=== PATIENT | male | born 1940 | race Caucasian/White ===

== ENCOUNTER 2018-06-18 12:25 | Inpatient (IN) | payer MEDICARE, OTHER ==
[2018-06-18 15:25] LABS: CKMB 1.2 ng/mL (0-6.6); Troponin I Less than 0.010 ng/mL (< 0.028)
[2018-06-18] MEDS ORDERED: Mag-Al 1200 mg/1200 mg/30 ML UDCUP PO PRN (17:48)
[2018-06-18] MEDS ORDERED: Senokot 8.6 MG TAB PO PRN (17:48)
[2018-06-18] MEDS ORDERED: Nitroglycerin 0.4 MG TAB (25 Tab Bottle) PO PRN (17:48)
[2018-06-18] MEDS ORDERED: Ondansetron ODT 4 MG TAB PO PRN (17:48)
[2018-06-18] MEDS ORDERED: Calcium Carbonate 500 MG ChewTAB PO PRN (17:48)
[2018-06-18] MEDS ORDERED: Ondansetron HCl/PF 4 MG/2 ML Vial IVP PRN (17:48)
[2018-06-18] MEDS ORDERED: Acetaminophen 325 MG TAB PO PRN (17:48)
--- NOTE | 2018-06-18 17:56 | CON ---
DATE OF CONSULTATION: 06/18/2018 PRIMARY CANCER REGISTRY COORDINATOR: David Hassan M.D. REASON FOR CONSULTATION: Atrial fibrillation, rapid ventricular response. HISTORY OF PRESENT ILLNESS: Mr. Tamayo is a very pleasant 78-year-old white gentleman who comes to the hospital for not feeling well. He was not feeling well for the last few days and he sent recordi ng of his AICD to [facility] and was told to come to the ER. In the ER, he was found to be in atrial fibrillation with heart rate in the 80s. He is being admitted for further evaluation and care. He a lso had episodes of what appeared to be paced rhythm in the 70s. He does have a history of paroxysma l atrial fibrillation in the past and has been on several antiarrhythmics including Multaq more recen tly and currently he is on 80 mg of sotalol twice a day. He currently still feels a little worn out. He states this is the same way he feels when his atrial fibrillation comes. PAST MEDICAL HISTORY: 1. Nonischemic cardiomyopathy, latest EF at 45% to 50%. 2. Paroxysmal atrial fibrillation. 3. History of ventricular arrhythmia, status post AICD placement. 4. Hypertension. 5. Benign prostatic hypertrophy. 6. Hyperlipidemia. OUTPATIENT MEDICATIONS: Include, 1. Hydralazine 50 mg t.i.d. 2. Mucinex. 3. Clonidine 0.1 mg at bedtime. 4. Amlodipine/valsartan daily. 5. Zocor 40 mg at bedtime. 6. Rapaflo. 7. Xarelto 20 mg a day. 8. Primidone 50 mg a day. 9. Potassium chloride 10 mEq a day. 10. Multivitamins. 11. Lisinopril 40 mg a day. 12. Lasix 40 mg a day. 13. Flonase nasal spray. 14. Finasteride. 15. Prozac 20 mg a day. 16. Nexium. 17. Docusate. 18. Sotalol 80 mg twice a day. 19. Aspirin 81 a day. 20. Tylenol p.r.n. ALLERGIES: MULTAQ causes swelling. PAST SURGICAL HISTORY: 1. Mass removed in his neck 3 years ago. 2. Repair of anal fistula. 3. AICD placement. 4. Removal of AICD lead due to recall and revision of AICD, this was some years back. FAMILY HISTORY: Father with coronary artery disease, cardiomyopathy, at 64. SOCIAL HISTORY: Drinks a shot of bourbon at night, [employer], quit smoking about 35-36 years ago. No drug use. REVIEW OF SYSTEMS: A 12-point review of systems was done and is all negative unless stated in the hi story of present illness. PHYSICAL EXAMINATION: VITAL SIGNS: Blood pressure 122/72, satting 96% on room air, heart rate of 87, respiratory rate 18. GENERAL: Awake, alert, oriented x3, in no distress. HEENT: Normocephalic, atraumatic. NECK: Supple. LUNGS: Clear. CARDIOVASCULAR: Irregularly irregular heart rate in the 70s-80s. ABDOMEN: Soft, positive bowel sounds. EXTREMITIES: No edema. SKIN: Warm and dry. LABORATORY WORK: Reviewed. Troponin is negative x2. CBC is unremarkable. Chemistries were unremar kable except for glucose of 123. EKG was reviewed, after fibrillation with heart rate in the 70s-80s with occasional paced beats. ASSESSMENT AND PLAN: 1. Atrial fibrillation. Paroxysmal. Symptomatic, currently, he has failed antiarrhythmic therapy a s he has been on sotalol 80 mg twice a day. We will plan on keeping him n.p.o. post-midnight and doi ng a cardioversion tomorrow to get him back into normal rhythm and he would be a candidate for an abl ation given him failing the antiarrhythmic therapy. 2. Continue Xarelto for stroke prophylaxis and sotalol for now. 3. Dr. Hassan, his primary daytime caregiver will follow up in the morning.
[2018-06-18 17:57] VITALS: BMI 32.2
[2018-06-18] MEDS ORDERED: Fluticasone Propionate Nasal Spray 16 gm Bottle NASAL PRN (18:00)
[2018-06-18] MEDS ORDERED: Acetaminophen 500 MG TAB PO PRN (18:00)
[2018-06-18] MEDS ORDERED: guaiFENesin ER 600 MG TAB PO PRN (18:00)
--- NOTE | 2018-06-18 18:04 | HP ---
DATE OF ADMISSION: 06/18/2018 PRIMARY CARE PHYSICIAN: Dr. Mcclain. PRIMARY MANAGER MASSAGE DEPARTMENT: Dr. Hassan. CHIEF COMPLAINT: Chest discomfort along with generalized weakness/fatigue since yesterday. HISTORY OF PRESENT ILLNESS: Patient is a 78-year-old male with cardiomyopathy, chronic atrial fibril lation on anticoagulation, hypertension, and dyslipidemia who presented to the emergency room with ge neralized weakness, fatigue along with chest pressure since last night. The chest pressure was mild to moderate in intensity. He also felt intermittent palpitations. No nausea, vomiting, diaphoresis or radiation reported. He denies recent immobilization, travel. He is compliant with all of his med ications. He interrogated his pacemaker. He received a call from Dr. Diallo's office come to the [facility] room for evaluation for possible ventricular tachycardia. PAST MEDICAL HISTORY: 1. Cardiomyopathy. 2. Chronic atrial fibrillation. 3. Hypertension. 4. Dyslipidemia. 5. Benign prostatic hypertrophy. 6. Anxiety, depression. PAST SURGICAL HISTORY: 1. Pacemaker placement. 2. Neck mass removal. 3. Fistula in ano repair. ALLERGIES: MULTAQ that causes generalized swelling. CURRENT HOME MEDICATIONS: Carvedilol 25 mg twice a day, lisinopril 40 mg daily, finasteride 5 mg carter ly, rabeprazole 20 mg daily, Lasix 40 mg daily, sotalol 80 mg twice a day, Exforge daily 10/320 daily , venlafaxine 150 mg daily, Flomax 0.4 mg daily, hydralazine 50 mg 3 times a day, Zocor 40 mg at bedt ana, primidone 100 mg at bedtime, melatonin 5 mg at bedtime, potassium 10 mEq daily. SOCIAL HISTORY: Patient currently lives at home. He is . He drinks alcohol socially. Quit smoking many years ago. He is FULL CODE, makes his own decisions with the help of his . FAMILY HISTORY: Father with heart disease. REVIEW OF SYSTEMS: The following complete review of systems was negative, unless otherwise mentioned in the HPI or below: Constitutional: Weight loss or gain, ability to conduct usual activities. Skin: Rash, itching. Eyes: Double vision, pain. ENT/Mouth: Nose bleeding, neck stiffness, pain, tenderness. Cardiovascular: Palpitations, dyspnea on exertion, orthopnea. Respiratory: Shortness of breath, wheezing, cough, hemoptysis, fever or night sweats. Gastrointestinal: Poor appetite, abdominal pain, heartburn, nausea, vomiting, constipation, or diarr hea. Genitourinary: Urgency, frequency, dysuria, nocturia. Musculoskeletal: Pain, swelling. Neurologic/Psychiatric: Anxiety, depression. Allergy/Immunologic: Skin rash, bleeding tendency. PHYSICAL EXAMINATION: VITAL SIGNS: On ER arrival, temperature 98, pulse rate of 87, blood pressure 122/72 with O2 saturati on 96% on room air. GENERAL: A 78-year-old male in no apparent distress. HEENT: Head is atraumatic, normocephalic, Sclerae are anicteric. Moist mucous membranes. No oral l esion. NECK: Supple, no JVD, no carotid bruit. LUNGS: Clear to auscultation bilaterally, no wheezing, rales or rhonchi. HEART: S1 and S2 present. Irregularly irregular. No heaves or pulsation. ABDOMEN: Soft, nontender, bowel sounds present. EXTREMITIES: No edema or calf tenderness. NEUROLOGIC: Grossly nonfocal, moves all four extremities. PSYCHIATRIC: Alert, awake, oriented x3. SKIN: Warm and dry. LYMPH NODES: No palpable lymph nodes in the neck. PERIPHERAL VASCULAR: Radial pulses palpable bilaterally. MUSCULOSKELETAL: No joint swelling or tenderness. LABORATORY DATA AND IMAGING DATA: 1. Troponins were negative. 2. CBC showed WBC 10 with hemoglobin 15.3, hematocrit 44.3 and platelet 288. 3. Creatinine of 1.1 with BUN 12. Magnesium 2.5. 4. Chest x-ray by my review was negative for infiltrate. EKG by my review showed paced rhythm with intermittent atrial fibrillation. IMPRESSION: 1. Chest discomfort, rule out acute coronary syndrome. 2. Chronic atrial fibrillation on anticoagulation. 3. Hypertension. 4. Dyslipidemia. 5. Anxiety and depression. 6. Gastroesophageal reflux disease. 7. Benign prostatic hypertrophy. 8. Chronic kidney disease stage 2. 9. History of AICD placement. PLAN: The patient will be monitored on the telemetry unit. Serial troponins will be done. We will consult Cardiology. The patient will be kept n.p.o. past midnight. We will continue anticoagulation . We will continue carvedilol and sotalol. We will resume other medications as well. Plan of care was discussed with the patient in detail. He stated understanding. DISPOSITION: Probably in 24 hours depending on Cardiology input.
[2018-06-18 18:23] LABS: Troponin I Less than 0.010 ng/mL (< 0.028)
[2018-06-18] MEDS ORDERED: Sotalol HCl 80 MG TAB PO SCH (21:00)
[2018-06-18] MEDS: Carvedilol 25 MG TAB PO SCH (21:52)
[2018-06-18] MEDS: Rivaroxaban 10 MG TAB PO SCH (21:52)
[2018-06-18] MEDS: Simvastatin 40 MG TAB PO SCH (21:53)
[2018-06-18] MEDS: cloNIDine 0.1 MG TAB PO SCH (21:53)
[2018-06-18] MEDS: hydrALAZINE 25 MG TAB PO SCH (21:53)
[2018-06-18] MEDS: Docusate 100 MG CAP PO SCH (21:56)
[2018-06-19] MEDS ORDERED: Sotalol HCl 80 MG TAB PO SCH (07:22)
[2018-06-19] MEDS ORDERED: Hydrochlorothiazide 25 MG TAB PO SCH (09:00)
[2018-06-19] MEDS ORDERED: VALSARTAN PO SCH (09:00)
[2018-06-19] MEDS ORDERED: AMLODIPINE PO SCH (09:00)
[2018-06-19] MEDS ORDERED: Valsartan 80 MG TAB PO SCH (09:00)
[2018-06-19] MEDS ORDERED: Amlodipine 10 MG TAB PO SCH (09:00)
[2018-06-19] MEDS: Venlafaxine HCl XR 150 MG CAP PO SCH (09:07)
[2018-06-19] MEDS: Tamsulosin HCl 0.4 MG CAP PO SCH (09:09)
[2018-06-19] MEDS: Amlodipine 10 MG TAB PO SCH (09:09)
[2018-06-19] MEDS: Carvedilol 25 MG TAB PO SCH ×2 (09:09→20:33)
[2018-06-19] MEDS: Docusate 100 MG CAP PO SCH ×2 (09:09→20:36)
[2018-06-19] MEDS: Valsartan 80 MG TAB PO SCH (09:10)
[2018-06-19] MEDS: Sotalol HCl 80 MG TAB PO SCH ×2 (09:11→20:33)
[2018-06-19] MEDS: Lisinopril 20 MG TAB PO SCH (09:11)
[2018-06-19] MEDS: Furosemide 40 MG TAB PO SCH (09:12)
[2018-06-19] MEDS: hydrALAZINE 25 MG TAB PO SCH ×3 (09:12→20:35)
[2018-06-19] MEDS: Multivitamin W/ Minerals 1 TAB PO SCH (09:13)
[2018-06-19] MEDS: Potassium Chloride 10 MEQ TAB PO SCH (09:13)
[2018-06-19] MEDS: Finasteride 5 MG TAB PO SCH (09:13)
--- NOTE | 2018-06-19 12:10 | PRG ---
DATE OF SERVICE: 06/19/2018 SUBJECTIVE: The patient is seen and examined at bedside. He is feeling better. Apparently, he was scheduled for HOMER and ablation of his atrial fibrillation this morning, but he converted and he is in sinus rhythm with some occasional atrial pacing going on. OBJECTIVE: VITAL SIGNS: Blood pressure is 146/76, pulse is 62, temperature is 97.9, O2 saturation is 96% on leopoldo m air and respiratory rate is 16. HEENT: His head is atraumatic, normocephalic. Eyes are PERRLA. Sclerae nonicteric. Oral mucosa is moist. NECK: Supple, no lymphadenopathy. Thyroid is not palpable. LUNGS: Clear. HEART: S1, S2, occasionally irregular. No S3, no S4. ABDOMEN: Soft, nontender, nondistended. EXTREMITIES: No clubbing, cyanosis or edema. NEUROLOGIC: He is alert and oriented x4. There is no any focal deficits. LABORATORY DATA: None today. IMPRESSION: 1. Atrial fibrillation, paroxysmal, the dose on sotalol was increased. Most likely, he will stay ad ditional 24 hours and be monitored for recurrence of his atrial fibrillation. Transesophageal echoca rdiography and ablation procedure were cancelled at this point. We will continue Xarelto for cerebro vascular accident prophylaxis. 2. Cardiomyopathy. 3. Hypertension. 4. Dyslipidemia. 5. Anxiety and depression. 6. Gastroesophageal reflux disease. 7. Chronic kidney disease stage 2. 8. History of AICD placement. He is going to be discharged most likely in the next 24 hours if his atrial fibrillation is under con trol on higher dose of sotalol.
[2018-06-19] MEDS: cloNIDine 0.1 MG TAB PO SCH (20:35)
[2018-06-19] MEDS: Rivaroxaban 10 MG TAB PO SCH (20:35)
[2018-06-19] MEDS: Simvastatin 40 MG TAB PO SCH (20:36)
--- NOTE | 2018-06-19 21:51 | CON ---
DATE OF CONSULTATION: 06/19/2018 REFERRING PHYSICIAN: Dr. David Hassan. REASON FOR CONSULTATION: Atrial fibrillation. HISTORY OF PRESENT ILLNESS: Mr. Tamayo is a very pleasant man known to our clinic with a history of atrial arrhythmias as well as inclusion of an ICD device. Today referred to his care that he presen kira to the emergency room in [place] for atrial fibrillation with complaints of feeling tired and scales ving regular heartbeat detected on his home blood pressure monitor. In the past, he has had intermit tent episodes of atrial fibrillation, which has been largely asymptomatic and brief in nature with ta destinee sotalol for arrhythmia suppression. He was then admitted for further evaluation and medication management. His sotalol was increased to 120 mg b.i.d. and his Xarelto was continued for stroke prop hylaxis. Currently, he is feeling well without any heart racing, palpitations, chest pain or pressure, syncope , near syncope, stroke or stroke-like symptoms. He feels like the higher dose of sotalol as working at keeping him in rhythm more. REVIEW OF SYSTEMS: A 12-point review of systems was conducted and is negative except that listed abo ve in the HPI. The patient denies any heart failure symptoms of shortness of breath, swelling of the extremities, increasing dyspnea on exertion or progressive fatigue. Fatigue was sudden in onset whe n he awoke. PAST MEDICAL HISTORY: 1. Nonischemic cardiomyopathy with recovered ejection fraction most recently documented at 45% to 50 %. 2. Paroxysmal atrial fibrillation. 3. Inclusion of a dual chamber ICD placed for history of ventricular arrhythmias. 4. Hypertension. 5. Gastroesophageal reflux disease. 6. Hyperlipidemia. 7. Anticoagulation with Xarelto. 8. Antiarrhythmic therapy on sotalol. 9. Benign prostatic hypertrophy. ALLERGIES: MULTAQ causes swelling. OUTPATIENT MEDICATIONS: Include carvedilol 25 mg b.i.d., Exforge 10/320 mg daily, sotalol 80 mg b.i. d., Lasix 40 mg daily, potassium 10 mEq daily, finasteride 5 mg daily, lisinopril 40 mg daily, hydral azine 50 mg daily, multivitamin daily, Xarelto 20 mg daily, docusate calcium 240 mg daily, Zocor 40 m g daily, clonidine 0.1 mg as needed, primidone 100 mg p.o. at bedtime, Tylenol as needed, Optive eyed rops, Flonase, Mucinex, tamsulosin 0.4 mg at bedtime, venlafaxine, and rabeprazole. FAMILY HISTORY: Positive for father with coronary artery disease and cardiomyopathy in the past at a ge of 64. SOCIAL HISTORY: Alcoholic beverage daily. Former tobacco habituation, quit approximately 35 years a go. No illicit drug use. PHYSICAL EXAMINATION: VITAL SIGNS: Most recent vital signs include 98.1, heart rate 61, blood pressure 125/70, respiration s 20, oxygen saturations 97% on room air. LABORATORY DATA: Serial troponins are negative. Magnesium is 2.5. WBC 10.0, hemoglobin 15.3, hemat ocrit 43.3, platelet count is 288. Sodium 145, potassium 3.7, BUN 12, creatinine 1.16. AST and ALT are within normal limits. BNP 488. EKG and telemetry all were personally reviewed and initially reflect atrial fibrillation with control led ventricular rate. The patient has since converted to normal sinus rhythm and is largely maintain ing sinus rhythm with demand ventricular pacing during episodes of bradycardia. ICD has not been interrogated. IMPRESSION: 1. Paroxysmal atrial fibrillation with recurrence and mild RVR despite sotalol 80 mg b.i.d., now diana ntaining sinus rhythm with increased sotalol 120 mg b.i.d. 2. Chronic systolic heart failure with mildly reduced left ventricular ejection fraction 45% to 50%. 3. Anticoagulation on Xarelto and tolerating well without bleeding dyscrasias for a CHADS-VASc score of 4 on the basis of advanced age, history of heart failure and history of hypertension, anticoagula tion is indicated. 4. Inclusion of a dual chamber ICD Medtronic Protecta XT , approaching SERGO with estimated longevit y of 2.7 months by device interrogation when he was last seen in clinic on 05/23/2018. PLAN: 1. Agree with increased sotalol at 120 mg b.i.d. We will add daily EKGs to monitor for QTC prolonga tion. 2. We will set up for outpatient PVI in the near future. Thank you for allowing us to participate in the care of this patient. We will continue to follow thr ough his hospitalization and do recommend continued monitoring with serial EKGs with the increase in the sotalol prior to discharge.
[2018-06-20] MEDS: Amlodipine 10 MG TAB PO SCH (08:37)
[2018-06-20] MEDS: Carvedilol 25 MG TAB PO SCH (08:37)
[2018-06-20] MEDS: Multivitamin W/ Minerals 1 TAB PO SCH (08:38)
[2018-06-20] MEDS: Finasteride 5 MG TAB PO SCH (08:38)
[2018-06-20] MEDS: hydrALAZINE 25 MG TAB PO SCH ×2 (08:38→16:04)
[2018-06-20] MEDS: Lisinopril 20 MG TAB PO SCH (08:38)
[2018-06-20] MEDS: Furosemide 40 MG TAB PO SCH (08:38)
[2018-06-20] MEDS: Sotalol HCl 80 MG TAB PO SCH (08:39)
[2018-06-20] MEDS: Potassium Chloride 10 MEQ TAB PO SCH (08:39)
[2018-06-20] MEDS: Venlafaxine HCl XR 150 MG CAP PO SCH (08:40)
[2018-06-20] MEDS: Tamsulosin HCl 0.4 MG CAP PO SCH (08:40)
[2018-06-20] MEDS: Valsartan 80 MG TAB PO SCH (08:40)
[2018-06-20] MEDS: Docusate 100 MG CAP PO SCH (08:43)
[2018-06-20 16:04] VITALS: BP 137/72
[2018-06-20 16:10] VITALS: TEMP 98.6
--- NOTE | 2018-06-20 17:06 | PDOC.CTH ---
<BenoiteliezerblaiseClotilde - Last Filed: 06/20/18 17:03> Cardiology Progress Note - Subjective EP progress Note: Patient seen and evaluated. No new cardiac concerns of complaints. Tolerating higher sotalol dose well - Objective Vital Signs Temp Pulse Resp BP BP Pulse Ox 06/20/18 16:04 62 137/72 06/20/18 16:00 98.6 F 62 16 137/72 96 06/20/18 11:26 97.6 F 60 16 122/67 96 06/20/18 08:43 98.0 F 65 16 94 L 06/20/18 08:39 65 139/80 06/20/18 08:38 65 139/80 06/20/18 08:37 65 139/80 06/20/18 08:09 97 06/20/18 08:00 98.0 F 65 16 139/80 94 L Weight 224 lb 4.8 oz 06/19/18 06/20/18 06/21/18 06:59 06:59 06:59 Intake Total 480 1414 Output Total 275 1000 Balance 205 414 - Physical Examination General/Neuro: alert & oriented x3, NAD Neck: carotid US brisk, no JVD present Lungs: CTA, unlabored respirations Heart: PMI normal, RRR Abdomen: no HSM, NT/ND - Telemetry Telemetry Rhythm: NSR - Labs Troponin/CKMB CK-MB (CK-2) 1.2 ng/mL (0-6.6) 06/18/18 14:47 Troponin I Less than 0.010 ng/mL (< 0.028) 06/18/18 17:43 - Assessment/Plan 1. A Fib with RVR now maintaining NSR. 2. OAC on Xarelto QTc stable (~410 msec) by 12 leak EKGs with higher dose of sotalol. Continue OAC and sotalol. OK for DC. will make arrangements for PVAI as outpatient in the near future. <Rudy Diallo - Last Filed: 06/20/18 18:03> Cardiology Progress Note - Objective Vital Signs Temp Pulse Resp BP BP Pulse Ox 06/20/18 16:04 62 137/72 06/20/18 16:00 98.6 F 62 16 137/72 96 06/20/18 11:26 97.6 F 60 16 122/67 96 06/20/18 08:43 98.0 F 65 16 94 L 06/20/18 08:39 65 139/80 06/20/18 08:38 65 139/80 06/20/18 08:37 65 139/80 06/20/18 08:09 97 06/20/18 08:00 98.0 F 65 16 139/80 94 L Weight 224 lb 4.8 oz 06/19/18 06/20/18 06/21/18 06:59 06:59 06:59 Intake Total 480 1414 Output Total 275 1000 Balance 205 414 - Labs Troponin/CKMB CK-MB (CK-2) 1.2 ng/mL (0-6.6) 06/18/18 14:47 Troponin I Less than 0.010 ng/mL (< 0.028) 06/18/18 17:43 Attending Addendum - Attending Addendum Date/Time: 06/20/18 180 I personally evaluated the patient and discussed the management with Ms Stephen. I agree with the History, Examination, Assessment and Plan documented above with any addition or exceptions noted below.
== END 2018-06-20 19:27 | disposition home or self-care (01) | DRG 309 ==
LOC: ERS 12:25 → 2NO 15:12 → INTOOBSV 15:12 → OBSVTOIN 06-19 15:46
PROVIDERS: ADMIT Internal Medicine; ATTEND Internal Medicine
DX: I48.0 Paroxysmal atrial fibrillation (principal); I13.0 Hypertensive heart and chronic kidney disease with heart failure and stage 1 through stage 4 chronic kidney disease, or unspecified chronic kidney disease; I50.22 Chronic systolic (congestive) heart failure; I42.9 Cardiomyopathy, unspecified; E78.5 Hyperlipidemia, unspecified; N40.0 Benign prostatic hyperplasia without lower urinary tract symptoms; F41.9 Anxiety disorder, unspecified; F32.9 Major depressive disorder, single episode, unspecified; K21.9 Gastro-esophageal reflux disease without esophagitis; N18.2 Chronic kidney disease, stage 2 (mild); Z79.01 Long term (current) use of anticoagulants; Z87.891 Personal history of nicotine dependence; Z95.810 Presence of automatic (implantable) cardiac defibrillator; Z82.49 Family history of ischemic heart disease and other diseases of the circulatory system
CPT/HCPCS: 36415; 83735; 93005; 93010; 93306; 94760; A4216

== ENCOUNTER 2019-04-06 04:41 | Emergency (ER) | payer MEDICARE, OTHER | END 2019-04-06 05:33 | disposition home or self-care (01) | LOC: ERS 04:41 | DX: J06.9 Acute upper respiratory infection, unspecified (principal); I48.91 Unspecified atrial fibrillation; I10 Essential (primary) hypertension; F32.9 Major depressive disorder, single episode, unspecified; Z87.891 Personal history of nicotine dependence; Z79.899 Other long term (current) drug therapy; Z79.82 Long term (current) use of aspirin | CPT/HCPCS: 99282 ==

== ENCOUNTER 2020-01-25 10:31 | Inpatient (IN) | payer MEDICARE, OTHER ==
[2020-01-25] MEDS ORDERED: Ondansetron PF 4 MG/2 ML Vial ONE (10:41)
[2020-01-25 11:11] LABS: #Eosinphils 0.1 thou/uL (0.0-0.7); #Lymphocytes 1.5 thou/uL (1.20-3.40); #Monocytes 0.7 thou/uL (0.11-0.59); #Neutrophils 10.6 thou/uL (1.40-6.50); %Basophils 0.1 % (0.0-1.0); %Eosinophils 1.1 % (0.0-10.0); %Lymphocytes 11.6 % (21.0-51.0); %Neutrophils 82.1 % (42.0-75.0); Hemoglobin 14.3 g/dL (14.0-18.0); Mean Corpuscular HGB CONC 33.8 g/dL (32.0-36.0); Mean Corpuscular Hemoglobin 31.5 pg (27.0-31.0); Mean Corpuscular Volume 93.2 fL (78.0-98.0); Mean Platelet Volume 9.3 fL (7.4-10.4); Platelet Count 223 thou/uL (130-400); Red Blood Cell (RBC) Count 4.53 mill/uL (4.70-6.10); White Blood Cell (WBC) Count 12.9 thou/uL (4.8-10.8)
[2020-01-25] MEDS ORDERED: Ondansetron PF 4 MG/2 ML Vial IVP PRN (11:11)
[2020-01-25 11:18] LABS: INR-International Normal Ratio 1.1; Prothrombin Time 13.7 SEC (12.0-14.7)
[2020-01-25 11:24] LABS: PTT 22.3 SEC (22.9-36.1)
[2020-01-25 11:32] LABS: ALT (SGPT) 16 U/L (8-55); AST (SGOT) 16 U/L (5-34); Alkaline Phosphatase 55 U/L (40-110); Anion Gap 11 mmol/L (10-20); BUN (Urea Nitrogen) 14 mg/dL (8.4-25.7); Bilirubin, Total 0.6 mg/dL (0.2-1.2); CK (CPK) 55 U/L (30-200); Calc. Creatinine Clearance 0 mL/min (70-130); Carbon Dioxide 28 mmol/L (23-31); Chloride 104 mmol/L (98-107); Estimated GFR-MDRD 72; Globulin 2.3 g/dL (2.4-3.5); Glucose 155 mg/dL (83-110); Lipase 28 U/L (8-78); Potassium 3.4 mmol/L (3.5-5.1); Protein, Total 6.3 g/dL (5.8-8.1); Sodium 140 mmol/L (136-145)
--- NOTE | 2020-01-25 12:01 | CT ---
CT arteriogram neck with IV contrast and 3-D imaging CT arteriogram head with IV contrast and 3-D imaging CT brain with IV contrast HISTORY: CVA. Intraparenchymal hemorrhage. COMPARISON: Noncontrast CT brain performed on the same date. FINDINGS: Good contrast opacification of the aortic arch with normal branching of the great vessels. Good flow into each carotid and vertebral system. Mild calcification at each carotid bifurcation which is widely patent. [place] is intact. Mild calcification within the carotid siphons. Good flow into each cerebr al and cerebellar system. The large irregular shaped hyperdense fluid collection centered within the left occipital lobe is aga in demonstrated. It measures up to 5.3 cm x 2.9 cm where it was previously 4.5 cm x 3.0 cm. The hyperdense fluid obscures the underlying vessels. No focal enhancing mass is apparent here or elsewhe re. IMPRESSION: No acute vascular abnormalities are demonstrated. There is mild atherosclerosis. Slight interval enlargement of the large acute left occipital intra-axial hematoma.
[2020-01-25 12:51] LABS: Bilirubin Negative (Negative); Blood, Urine Negative (Negative); Glucose, Urine (Dipstick) 100 mg/dL (Negative); Leukocyte Negative (Negative); Nitrite Negative (Negative); Protein, Urine (Dipstick) Trace mg/dL (Neg-Trace); Urobilinogen 0.2 mg/dL (Less than 2)
[2020-01-25 12:53] LABS: Clarity Clear (Clear)
[2020-01-25 12:54] LABS: Bacteria/HPF None Seen HPF (None Seen); RBC/HPF 0-3 HPF (0-3); Squamous Epithelial None Seen HPF (0-3); WBC/HPF None Seen HPF (0-3)
[2020-01-25] MEDS ORDERED: Morphine 2 MG/ML SYRINGE ONE (13:23)
[2020-01-25] MEDS ORDERED: Iopamidol-370 76% 500 ML 1 ML ONE (13:57)
--- NOTE | 2020-01-25 17:20 | HP ---
HISTORY OF PRESENT ILLNESS: The patient is an 79-year-old male with a past medical history of atrial fibrillation, previously on Xarelto, but discontinued 1 month ago per reports, on 81 mg aspirin daily; cardiomyopathy; hypertension; and hyperlipidemia, who presented as a transfer from [facility] ED for acute left occipital intraparenchymal hemorrhage. The patient reportedly woke up this morning with significant headache and some vision changes as well as confusion. His family brought him to the [facility] ER where he was evaluated with a noncontrast head CT, which was notable for a left occipital intraparenchymal hemorrhage with moderate amount of surrounding vasogenic edema. The patient was transferred to [facility] for further management. He was also noted to be significantly hypertensive on arrival to the ER originally with systolic blood pressure in the 180s on arrival. He was started on nicardipine. His blood pressure had significantly improved upon arrival to our facility. I visited the patient at the bedside and his systolic blood pressure was now 130. The patient initially had a GCS of 15 at [facility], but was a bit more confused upon arrival to our facility, and thus, I gave him a GCS of 14. The patient is awake and alert. His eyes are open. He is able to tell me his name and where he is, but not the year or the president. He is moving all 4s without difficulty. He has what appears to be complete vision loss in the right eye and significant dysmetria with bilateral upper extremities. PAST MEDICAL HISTORY: 1. Hypertension. 2. Hyperlipidemia. 3. Atrial fibrillation. 4. Cardiomyopathy. PAST SURGICAL HISTORY: 1. Pacemaker defibrillator. 2. Vasectomy. 3. Cardiac cath x2. SOCIAL HISTORY: Lives at home with his family. He does drink alcohol daily, but less than 5 drinks. Does not use any drugs. He is a former tobacco user. ALLERGIES: HE IS ALLERGIC TO MULTAQ AND DRONEDARONE. PHYSICAL EXAMINATION: VITAL SIGNS: BP is currently 120/63, pulse is 68, respirations are 16, temperature is 97.5, and the patient is 96% on room air. CONSTITUTIONAL: GCS 14. His eyes are open. He is somewhat confused. He is moving all 4s without difficulty and following commands appropriately. HEAD: Normocephalic and atraumatic. EYES: PERRLA. Extraocular movements intact. He has notable vision loss in the right eye. ENT: Oral mucosa is pink, intact, and moist. He has normal voice. NECK: Nontender. No meningismus or nuchal rigidity. CARDIAC: Regular rate and rhythm. RESPIRATORY: Symmetric chest expansion. No evidence of dyspnea. Appears to be protecting his airway appropriately. MUSCULOSKELETAL: He is moving all 4s. He does have a slight drift in the right lower extremity. NEUROLOGIC: Oriented x2 to person and place, but not time or situation. He has vision loss in the right eye and a slight drift in the right lower extremity. He has dysmetria with bilateral upper extremities. ASSESSMENT AND PLAN: This is an 79-year-old male with acute left occipital intraparenchymal hemorrhage of unclear etiology. His systolic blood pressure was slightly elevated, but not significantly so. It is improved here in the emergency department on Cardene. Fortunately, he cannot have MRI imaging due to pacemaker defibrillator. We will plan to get a CTA of the head. I have discussed the plan with Dr. Harvey who is in agreement and I will admit him to the ICU for close monitoring and frequent neuro checks as well as additional testing. I have also discussed the case with Dr. Wilson who will assist with management of this patient. The medicine team as well as case management, PT/OT have all been consulted. Job ID: [id number]
[2020-01-25] MEDS: Sodium Chloride 0.9% 1,000 ML IV SCH (17:21)
[2020-01-25] MEDS: Acetaminophen 325 MG TAB PO PRN (19:46)
[2020-01-26] MEDS: niCARdipine 25 MG in Sodium Chloride 0.9% 250 ML 240 ML IVPB SCH ×5 (02:05→20:05)
[2020-01-26] MEDS: Acetaminophen 325 MG TAB PO PRN ×2 (02:05→20:05)
[2020-01-26] MEDS: Sodium Chloride 0.9% 1,000 ML IV SCH ×2 (07:41→20:06)
--- NOTE | 2020-01-26 08:20 | CT ---
PRELIMINARY REPORT/[facility]/EMERGENCY AFTER HOURS PROCEDURE Receipt of this report by the clinical staff was confirmed with bala lozoya RN by Davy Bustos on Jan 26, 2020 05:18:00 CDT. Addendum electronically signed by Davy Bustos on January 26, 2020 5:18:39 AM CDT EXAM: CT Head, without Contrast DATE/ TIME: 01/26/2020, 4:10 AM INDICATION: Stroke TECHNIQUE: Axial CT imaging was performed through the head without intravenous administration of con trast. Exam was performed using one or more of the following dose reduction techniques: automated exposure control, adjustment of the mA and/or kV according to patient size, or use of iterative recon struction technique. COMPARISON: None. FINDINGS: Within the left occipital lobe there is an acute hemorrhage (Hu = 71) with transaxial dime nsions measuring 6.0 x 3.3 cm. There is surrounding hypoattenuation consistent with edema with associated effacement of overlying sulci. The hematoma and edema are causing rightward midline shift measuring 5.1 mm. Imaging begins at the maxillary alveolar ridge level. There is no fracture. Paranasal sinuses and m astoid air cells are clear. Orbital structures are unremarkable. IMPRESSION: Large hemorrhagic infarct in the left occipital lobe with associated cerebral edema and slight rightward midline shift. ELECTRONICALLY SIGNED BY: Rocael Barraza DO Jan 26, 2020 5:09:16 AM CDT This report is intended for review by the ordering physician only, in accordance of law. If you recei ve this report in error, please call [facility] at [phone]. FINAL REPORT CT head noncontrast 01/26/2020 performed on emergency basis at 0410 hours HISTORY: Intracranial hemorrhage. Follow-up. COMPARISON: 01/25/2020. FINDINGS: Agree with the preliminary report by Dr. Barraza from [facility]. The large left occipital lobe intra-axial hematoma has enlarged slightly since the previous exams. It now measures 6.0 cm x 3.3 cm greatest diameters, where it was 5.3 cm x 2.9 cm on the most recent study. No new areas of hemorrhage are apparent. Code QA. Transcribed Date/Time: 01/26/2020 8:40 AM
[2020-01-26] MEDS ORDERED: FLU VACC TS2019-20(65YR UP)/PF 180 MCG/0.5 ML SYRINGE IM ONE (09:00)
[2020-01-26] MEDS: Famotidine/PF 20 mg/2ml Vial SLOW IVP SCH (09:04)
--- NOTE | 2020-01-26 10:09 | PRG ---
DATE OF SERVICE: 01/26/2020 SUBJECTIVE: The patient was seen and examined. I agree with Iesha Paul's evaluation of 01/25/2020. The patient is an 79-year-old male who sustained a spontaneous decrease in mental status and confusion and was brought to the ER for evaluation. CT scan has revealed a left occipital hemorrhage. Followup CT scans revealed mild enlargement. Currently, the patient is alert and interactive and is nonfocal. He had been on aspirin for his atrial fibrillation, which has been held. IMPRESSION AND PLAN: Left occipital hemorrhage. Probable amyloid angiopathy, although an event related atrial fibrillation cannot be excluded. Nevertheless, he is not a candidate for anticoagulation at this time. Furthermore, CT angiography was negative. We will advance his diet and continue to mobilize but we will keep him in the ICU today. Job ID: [id number]
[2020-01-26] MEDS ORDERED: Amlodipine 10 MG TAB PO SCH (12:45)
[2020-01-26] MEDS ORDERED: Furosemide 40 MG TAB PO SCH (12:45)
--- NOTE | 2020-01-26 12:48 | CON ---
DATE OF TELEMEDICINE CONSULTATION: 01/26/2020 CHIEF COMPLAINT: Intracerebral hemorrhage. HISTORY OF PRESENT ILLNESS: History was mostly obtained from the chart. The patient was a bit confused. Other than knowing that he is at [facility], he was not articulate enough to be able to give us a clear medical history. Per chart , the patient has atrial fibrillation and has been on Xarelto, which was discontinued a month ago. He is currently on aspirin, and he has cardiomyopathy, hypertension, hyperlipidemia. He came in from [facility] following an acute left occipital intraparenchymal hemorrhage. He apparently woke up with significant headache and some vision changes and confusion. Family brought him to the ER and he had left occipital intraparenchymal hemorrhage with moderate vasogenic edema and he was transferred here for further care and management. Neurosurgery was also consulted on this patient and he has been confused since admission, but can follow simple commands and can maintain a brief conversation. PREVIOUS MEDICAL HISTORY: Hypertension, hyperlipidemia, atrial fibrillation, cardiomyopathy. SURGICAL HISTORY: Pacemaker and defibrillator, vasectomy, cardiac catheterization twice. SOCIAL HISTORY: He lives at home with his family. He does drink alcohol daily , but less than 5 drinks. Does not use any drugs. He is a former tobacco user. ALLERGIES: ALLERGIC TO MULTAQ AND DRONEDARONE. REVIEW OF SYSTEMS: Not very reliable due to the patient's confusion. PHYSICAL EXAMINATION: VITAL SIGNS: Temperature is 98.4 Fahrenheit, blood pressure 136/66, pulse rate is 85, respiratory rate 17. GENERAL APPEARANCE: Well-built, well-nourished man, comfortable in bed. CHEST: Clear vesicular breathing. CARDIOVASCULAR: S1 and S2 heard. No murmurs. ABDOMEN: Soft. NEUROLOGIC: Higher intellectual functions, normal. Orientation to place and person, but not to time. Appropriate conversation, can maintain a conversation. Cranial nerves 2 through 12, difficult to perform. Pupils are 3 mm reactive bilaterally. Tongue midline. Normal elevation of palate. Extraocular movements; he was only tracking on the left side, not on the right, likely secondary to vision loss and does have perception of hand movements. No facial asymmetry noted. Sensory exam of the face is normal. Normal hearing bilaterally. Tongue midline. Normal elevation of palate. Motor; bulk normal, tone normal. Strength 4/5 on the right side, 5/5 on the left side. Muscle groups tested deltoid, biceps, triceps , wrist extension and flexion, finger extension and flexion, iliopsoas, hamstrings , quadriceps, ankle dorsiflexion, plantar flexion. Deep tendon reflexes were diminished throughout. Sensory, normal to touch bilaterally. Cerebellar exam, normal [id number] and [id number]. LABORATORY DATA: White count 12.9, hemoglobin 14.3, hematocrit 42.2, platelet count 223. PTT 22.3, INR 1.1, PT 13.7. Sodium 140, potassium 3.4, chloride 104, bicarb 28, BUN 14, creatinine is 1, glucose 155. Liver functions are normal. Urinalysis is negative. IMAGING STUDIES: CT of the head was reviewed and CT shows left occipital hematoma with 6 x 3.3 cm with surrounding hypoattenuation consistent with edema and these are causing rightward midline shift measuring 5.1 mm. IMPRESSION: The patient is an 79-year-old man with left occipital hematoma. At this time, his examination shows mild confusion, visual deficit on the right side along with mild right-sided weakness corresponding to hematoma. This is being managed conservatively. At this time, he will need monitoring to make sure there is no deterioration. Medically as long as he is stable, there is no reason for any additional measures such as intubation or mannitol. Please follow Neurosurgery recommendations as well. Job ID: [id number] [facility]
[2020-01-26] MEDS ORDERED: Carvedilol 25 MG TAB PO SCH ×2 (13:00→21:00)
[2020-01-26] MEDS ORDERED: Tamsulosin HCl 0.4 MG CAP PO SCH (13:00)
--- NOTE | 2020-01-26 15:38 | CON ---
DATE OF CONSULTATION: 01/26/2020 HISTORY OF PRESENT ILLNESS: Mr. Tamayo is a pleasant gentleman, who unfortunately has had a brain hemorrhage that led to an ICU admission. He is adequately protecting his airway. He does have significant visual field defect. He was transferred here from [place]. Blood pressures have been controlled with Cardene. PAST MEDICAL HISTORY: Remarkable for hypertension, lipid disorder, atrial fib, pacemaker defibrillator, cardiomyopathy, and 2 cardiac catheterization. SOCIAL HISTORY: He drinks on a daily basis. Not a daily smoker. ALLERGIES: HE REPORTS MULTAQ AND DRONEDARONE ALLERGIES. FAMILY HISTORY: Negative for lung disease in early age. REVIEW OF SYSTEMS: Remarkable only for his complaints about his vision. PHYSICAL EXAMINATION: VITAL SIGNS: Heart rate is 115, blood pressure 166/82, respiratory rate is 18. GENERAL: In no distress. HEENT: His pupils are reactive. Sclerae are anicteric. NECK: Without lymphadenopathy. LUNGS: Clear. HEART: Regular rhythm. S1 and S2 normal. ABDOMEN: Soft and nontender. EXTREMITIES: Without clubbing, cyanosis, or edema. LABORATORY DATA: White count 12.9, hemoglobin 14.3, platelets 223. Electrolytes are normal. IMPRESSION: Occipital hemorrhage. He has history of cardiomyopathy with a defibrillator in place, followed apparently by Dr. Hassan. Dr. Hassan might be notified tomorrow of the present patient. We will follow. He is adequately protecting his airway. There are no acute pulmonary issues at this time. TIME SPENT: This is a 70-minute consult, 50% of the time spent on the unit coordinating care. Job ID: [id number] [facility]
[2020-01-26] MEDS: Carvedilol 25 MG TAB PO SCH (20:04)
--- NOTE | 2020-01-27 03:17 | CON ---
DATE OF CONSULTATION: REASON FOR CONSULTATION: Medical management. HISTORY OF PRESENT ILLNESS: The patient is an 79-year-old male with past medical history of atrial fibrillation, not on anticoagulation at the moment, hypertension, polyneuropathy, and hyperlipidemia, who is admitted to the hospital for management of intracranial hemorrhage. The patient was sent to the hospital yesterday after presenting to an outside ER with complaints of headache, confusion, and blurred vision. CT scan of the head revealed evidence of an occipital intraparenchymal hemorrhage and he was subsequently transferred to our facility where another CT scan of the head confirmed the diagnosis and showed a slight increase in the area of the hemorrhage. CT angiogram was performed, which did not show any vascular abnormality. The patient was also found to be in a hypertensive emergency state and the Cardizem drip was started to control his blood pressure. During my assessment, the patient appeared to be alert and oriented and complaining of some blurry vision to the right side. REVIEW OF SYSTEMS: Negative except as noted in the HPI. PHYSICAL EXAMINATION: GENERAL: The patient is alert and oriented x2. HEENT: His head is normocephalic, atraumatic. Extraocular muscles intact. Pupils equal, reactive to light. Cranial nerve examination revealed right-sided hemianopsia. Motor examination revealed mild left-sided weakness and sensory examination appears to be intact. NECK: Supple with no JVD. CHEST: Clear to auscultation bilaterally. CARDIOVASCULAR: Revealed normal S1 and S2. No murmurs, rubs, or gallops. ABDOMEN: Soft, nontender, nondistended. ASSESSMENT: 1. Left occipital lobe intraparenchymal hematoma. 2. Hypertensive emergency. 3. Atrial fibrillation. 4. Cardiomyopathy. 5. Hyperlipidemia. PLAN: We will restart the patient's carvedilol for rate control and start amlodipine, furosemide, and tamsulosin to help in blood pressure control. Titrate off nicardipine drip as tolerated with a goal of systolic blood pressure 140-150. The patient is not a candidate for anticoagulation at this time due to ICH. Job ID: [id number]
[2020-01-27 04:29] LABS: Anion Gap 11 mmol/L (10-20); Carbon Dioxide 26 mmol/L (23-31); Chloride 101 mmol/L (98-107); Sodium 135 mmol/L (136-145)
[2020-01-27 04:31] LABS: Potassium 2.7 mmol/L (3.5-5.1)
[2020-01-27] MEDS ORDERED: Potassium Chloride 20 MEQ TAB PO SCH (05:15)
[2020-01-27] MEDS ORDERED: Potassium Chloride 20 MEQ in Premix Bag 1 BAG IVPB SCH (05:15)
[2020-01-27] MEDS: Acetaminophen 325 MG TAB PO PRN ×2 (08:00→15:03)
[2020-01-27] MEDS ORDERED: Furosemide 40 MG TAB PO SCH (09:00)
[2020-01-27] MEDS ORDERED: Tamsulosin HCl 0.4 MG CAP PO SCH (09:00)
--- NOTE | 2020-01-27 09:30 | RAD ---
XR Chest 1 View Portable HISTORY: Fever COMPARISON: 01/25/2020 FINDINGS: The heart size is prominent but stable. The aorta is tortuous. Left-sided AICD remains in p lace. The lungs are well expanded without lobar consolidation, pneumothoraces, cristela pulmonary edema or pleural effusions. IMPRESSION: No radiographic evidence of acute cardiopulmonary process.
[2020-01-27] MEDS: Amlodipine 10 MG TAB PO SCH (09:43)
[2020-01-27] MEDS: Tamsulosin HCl 0.4 MG CAP PO SCH (09:43)
[2020-01-27] MEDS: Carvedilol 25 MG TAB PO SCH ×2 (09:43→21:23)
[2020-01-27] MEDS: Famotidine/PF 20 mg/2ml Vial SLOW IVP SCH (09:44)
[2020-01-27] MEDS: Furosemide 40 MG TAB PO SCH (09:44)
[2020-01-27] MEDS: cefTRIAXone\\ROCEPHIN 2 GM in Sodium Chloride 0.9% 100 ML IVPB SCH (09:44)
--- NOTE | 2020-01-27 10:47 | PRG ---
DATE OF SERVICE: 01/27/2020 SUBJECTIVE: Mr. Tamayo is febrile clinically unchanged. OBJECTIVE: VITAL SIGNS: Blood pressure 141/65, heart rate 64. LUNGS: Unchanged. HEART: Unchanged. ABDOMEN: Unchanged. LABORATORY DATA: Sodium 135, potassium 3.7, chloride 101, bicarb 26. IMPRESSION: 1. Parenchymal brain hemorrhage. 2. Hypertension. 3. Fever. Chest radiograph does not show any infiltrates, but cultures have been drawn. We started empiric antimicrobial therapy. We will continue to follow. Job ID: [id number]
--- NOTE | 2020-01-27 14:09 | PRG ---
DATE OF SERVICE: 01/27/2020 SUBJECTIVE: The patient is now 2 days out for acute left occipital hemorrhage. He is still having some ongoing confusion, but otherwise his neurologic exam has remained stable. We have been holding his aspirin, which he used to take previously for atrial fibrillation. OBJECTIVE: GENERAL: On exam this morning, the patient awakens easily and is able to tell me his name, but not the date or location. He is moving all 4s without difficulty. HEENT: Pupils are equal and reactive. He does have some ongoing vision loss in the right eye. He is noted to have fever up to 101, last night. NEURO: The patient appears neurologically stable. At this point, I feel that it is appropriate to transition to the Stroke Unit. He will require ongoing medical care and I have discussed this with the colleagues, who agreed to take primary. Please reach out to Neurosurgery for additional questions or concerns. Job ID: [id number]
--- NOTE | 2020-01-27 15:35 | PDOC.HOSPP ---
- Subjective Encounter Date: 01/27/20 Subjective: Confusion improving - Objective Vital Signs & Weight: Vital Signs (12 hours) Temp Pulse Pulse Pulse BP BP BP 01/27/20 12:00 98.6 F 01/27/20 10:42 96 91 144/73 H 133/71 01/27/20 09:43 64 141/65 H 01/27/20 09:00 99.5 F 01/27/20 08:56 72 67 146/68 H 141/63 H 01/27/20 08:00 01/27/20 07:00 101.2 F H 01/27/20 04:00 99.6 F Pulse Ox Pulse Ox Pulse Ox 01/27/20 12:00 01/27/20 10:42 01/27/20 09:43 01/27/20 09:00 01/27/20 08:56 96 98 01/27/20 08:00 98 01/27/20 07:00 01/27/20 04:00 Weight Admit Weight 212 lb Weight 212 lb 15.465 oz Most Recent Monitor Data Heart Rate from ECG 76 NIBP 159/76 NIBP BP-Mean 103 Respiration from ECG 23 SpO2 100 I&O: 01/26/20 01/27/20 01/28/20 06:59 06:59 06:59 Intake Total 1846 3452 850 Output Total 1425 1805 550 Balance 421 1647 300 Result Diagrams: 01/25/20 11:01 01/27/20 03:46 Hospitalist ROS - Medication Medications: Active Medications Generic Name Dose Route Start Last Admin Trade Name Freq PRN Reason Stop Dose Admin Acetaminophen 650 mg 01/25/20 11:11 01/27/20 15:03 Tylenol PO 650 mg Q6H PRN Administration Fever > 101 or Headache Amlodipine Besylate 10 mg 01/27/20 09:00 01/27/20 09:43 Norvasc PO 10 mg DAILY JERMAINE Administration Carvedilol 50 mg 01/26/20 21:00 01/27/20 09:43 Coreg PO 50 mg BID JERMAINE Administration Famotidine 20 mg 01/26/20 09:00 01/27/20 09:44 Pepcid SLOW IVP 20 mg DAILY JERMAINE Administration Furosemide 40 mg 01/27/20 09:00 01/27/20 09:44 Lasix PO 40 mg DAILY JERMAINE Administration Nicardipine HCl 25 mg/ Sodium 250 mls @ 0 mls/hr 01/25/20 11:00 01/26/20 20: 05 Chloride IVPB 250 mls INF JERMAINE Administration Ceftriaxone Sodium 2 gm/ 100 mls @ 200 mls/hr 01/27/20 10:00 01/27/20 09:44 Sodium Chloride IVPB 100 mls 1000 JERMAINE Administration Sodium Chloride 10 ml 01/25/20 21:00 01/26/20 21:00 Flush - Normal Saline IVF 10 ml Q12HR JERMAINE Administration Sodium Chloride 10 ml 01/25/20 11:11 01/27/20 15:04 Flush - Normal Saline IVF 10 ml PRN PRN Administration Saline Flush Tamsulosin HCl 0.4 mg 01/27/20 09:00 01/27/20 09:43 Flomax PO 0.4 mg DAILY JERMAINE Administration - Exam General Appearance: NAD ENT: normocephalic atraumatic Neck: supple, no JVD Heart: RRR, no murmur, no gallops, no rubs, normal peripheral pulses Respiratory: CTAB, no wheezes, no rales, no ronchi, normal chest expansion Gastrointestinal: soft, non-tender, non-distended, normal bowel sounds Hosp A/P (1) ICH (intracerebral hemorrhage) Code(s): I61.9 - NONTRAUMATIC INTRACEREBRAL HEMORRHAGE, UNSPECIFIED Status: Acute (2) Hypertensive emergency Code(s): I16.1 - HYPERTENSIVE EMERGENCY Status: Acute (3) Atrial fibrillation Code(s): I48.91 - UNSPECIFIED ATRIAL FIBRILLATION Status: Acute (4) Cardiomyopathy Code(s): I42.9 - CARDIOMYOPATHY, UNSPECIFIED Status: Acute - Plan OFF nicardipine drip BP is at target on oral medications Still with R hemianopsia Continue to monitor
[2020-01-27] MEDS ORDERED: Labetalol HCl 100 MG/20 ML VIAL SLOW IVP PRN (23:57)
[2020-01-28] MEDS: hydrALAZINE 20 MG/ML VIAL SLOW IVP PRN (01:32)
[2020-01-28 05:52] LABS: Anion Gap 17 mmol/L (10-20); BUN (Urea Nitrogen) 15 mg/dL (8.4-25.7); Calc. Creatinine Clearance 102 mL/min (70-130); Calcium 8.7 mg/dL (7.8-10.44); Carbon Dioxide 23 mmol/L (23-31); Chloride 98 mmol/L (98-107); Estimated GFR-MDRD Greater than 90; Glucose 86 mg/dL (83-110); Sodium 135 mmol/L (136-145)
[2020-01-28 06:00] LABS: Potassium 2.8 mmol/L (3.5-5.1)
[2020-01-28 06:03] LABS: Hemoglobin 14.4 g/dL (14.0-18.0); Mean Corpuscular HGB CONC 34.1 g/dL (32.0-36.0); Mean Corpuscular Hemoglobin 31.2 pg (27.0-31.0); Mean Corpuscular Volume 91.7 fL (78.0-98.0); RBC Distribution Width 12.9 % (11.5-14.5); Red Blood Cell (RBC) Count 4.62 mill/uL (4.70-6.10)
[2020-01-28 06:45] LABS: Band 4 % (5-11); Eosinophils 1 % (0-10); Lymphocytes 13 % (21-51); MDiff Complete? YES; Mean Platelet Volume 8.9 fL (7.4-10.4); Monocytes 7 % (0-10); Neutrophil 75 % (42-75); Platelet Count 249 thou/uL (130-400); White Blood Cell (WBC) Count 15.6 thou/uL (4.8-10.8)
[2020-01-28] MEDS ORDERED: Potassium Chloride 20 MEQ TAB PO SCH ×3 (06:45→12:00)
[2020-01-28] MEDS: Furosemide 40 MG TAB PO SCH (08:08)
[2020-01-28] MEDS: Carvedilol 25 MG TAB PO SCH ×2 (08:08→21:15)
[2020-01-28] MEDS: Amlodipine 10 MG TAB PO SCH (08:08)
--- NOTE | 2020-01-28 08:58 | CT ---
CT Brain WO Con HISTORY: Intracerebral hemorrhage COMPARISON: Exam of 01/26/2020 FINDINGS/IMPRESSION: Left occipital lobe intra-axial hematoma is minimally smaller measuring 5.7 x 3.3 cm with interval in crease in surrounding vasogenic edema. Midline shift remains at 5 mm to the right. No new areas of hemorrhage or infarcts are seen.
[2020-01-28] MEDS: Famotidine/PF 20 mg/2ml Vial SLOW IVP SCH (09:04)
[2020-01-28] MEDS: Tamsulosin HCl 0.4 MG CAP PO SCH (09:04)
[2020-01-28] MEDS: cefTRIAXone\\ROCEPHIN 2 GM in Sodium Chloride 0.9% 100 ML IVPB SCH (10:48)
[2020-01-28] MEDS: Acetaminophen 325 MG TAB PO PRN (16:56)
--- NOTE | 2020-01-28 21:22 | PDOC.HOSPP ---
- Subjective Encounter Date: 01/28/20 - Objective Vital Signs & Weight: Vital Signs (12 hours) Temp Pulse Pulse Pulse Resp BP BP 01/28/20 20:20 98.6 F 82 16 01/28/20 15:11 99.9 F H 88 16 01/28/20 11:24 98.9 F 83 20 01/28/20 10:02 83 90 126/69 159/87 H BP Pulse Ox 01/28/20 20:20 137/81 93 L 01/28/20 15:11 149/92 H 94 L 01/28/20 11:24 153/80 H 94 L 01/28/20 10:02 Weight Admit Weight 212 lb Weight 203 lb 8 oz Most Recent Monitor Data Heart Rate from ECG 75 NIBP 165/74 NIBP BP-Mean 104 Respiration from ECG 23 SpO2 95 I&O: 01/27/20 01/28/20 01/29/20 06:59 06:59 06:59 Intake Total 3452 900 Output Total 1805 800 Balance 1647 100 Result Diagrams: 01/28/20 04:53 01/28/20 04:53 Hospitalist ROS - Medication Medications: Active Medications Generic Name Dose Route Start Last Admin Trade Name Freq PRN Reason Stop Dose Admin Acetaminophen 650 mg 01/25/20 11:11 01/28/20 16:56 Tylenol PO 650 mg Q6H PRN Administration Fever > 101 or Headache Amlodipine Besylate 10 mg 01/27/20 09:00 01/28/20 08:08 Norvasc PO 10 mg DAILY JERMAINE Administration Carvedilol 50 mg 01/26/20 21:00 01/28/20 08:08 Coreg PO 50 mg BID JERMAINE Administration Famotidine 20 mg 01/26/20 09:00 01/28/20 09:04 Pepcid SLOW IVP 20 mg DAILY JERMAINE Administration Furosemide 40 mg 01/27/20 09:00 01/28/20 08:08 Lasix PO 40 mg DAILY JERMAINE Administration Hydralazine HCl 10 mg 01/27/20 23:58 01/28/20 01:32 Apresoline SLOW IVP 10 mg Q4H PRN Administration SBP > 150 or DBP > 105 Nicardipine HCl 25 mg/ Sodium 250 mls @ 0 mls/hr 01/25/20 11:00 01/26/20 20: 05 Chloride IVPB 250 mls INF JERMAINE Administration Ceftriaxone Sodium 2 gm/ 100 mls @ 200 mls/hr 01/27/20 10:00 01/28/20 10:48 Sodium Chloride IVPB 100 mls 1000 JERMAINE Administration Labetalol HCl 10 mg 01/27/20 23:57 01/28/20 00:24 Normodyne SLOW IVP 10 mg Q4H PRN Administration Systolic BP > 150 Sodium Chloride 10 ml 01/25/20 21:00 01/28/20 09:04 Flush - Normal Saline IVF 10 ml Q12HR JERMAINE Administration Sodium Chloride 10 ml 01/25/20 11:11 01/27/20 15:04 Flush - Normal Saline IVF 10 ml PRN PRN Administration Saline Flush Tamsulosin HCl 0.4 mg 01/27/20 09:00 01/28/20 09:04 Flomax PO 0.4 mg DAILY JERMAINE Administration - Exam General Appearance: ill appearing ENT: normocephalic atraumatic Neck: supple, no JVD Heart: RRR, no murmur, no gallops, no rubs, normal peripheral pulses Respiratory: CTAB, no wheezes, no rales, no ronchi, normal chest expansion Hosp A/P (1) ICH (intracerebral hemorrhage) Code(s): I61.9 - NONTRAUMATIC INTRACEREBRAL HEMORRHAGE, UNSPECIFIED Status: Acute (2) Hypertensive emergency Code(s): I16.1 - HYPERTENSIVE EMERGENCY Status: Acute (3) Atrial fibrillation Code(s): I48.91 - UNSPECIFIED ATRIAL FIBRILLATION Status: Acute (4) Cardiomyopathy Code(s): I42.9 - CARDIOMYOPATHY, UNSPECIFIED Status: Acute - Plan The patient was seen and examined. He appears to be more confused today and does have profound weakness bilaterally. Repeat CT scan of the head showed reduced size of the occipital hematoma. His blood pressure was elevated this morning but became under control after receiving his antihypertensive medications.
[2020-01-29] MEDS: hydrALAZINE 20 MG/ML VIAL SLOW IVP PRN (01:09)
[2020-01-29] MEDS: Acetaminophen 325 MG TAB PO PRN ×2 (05:04→17:55)
[2020-01-29 05:26] LABS: Anion Gap 13 mmol/L (10-20); BUN (Urea Nitrogen) 20 mg/dL (8.4-25.7); Calc. Creatinine Clearance 88 mL/min (70-130); Calcium 9.2 mg/dL (7.8-10.44); Carbon Dioxide 26 mmol/L (23-31); Chloride 100 mmol/L (98-107); Estimated GFR-MDRD 84; Glucose 119 mg/dL (83-110); Sodium 136 mmol/L (136-145)
[2020-01-29 05:27] LABS: Band 1 % (5-11); Hemoglobin 14.6 g/dL (14.0-18.0); Lymphocytes 16 % (21-51); MDiff Complete? YES; Mean Corpuscular HGB CONC 34.5 g/dL (32.0-36.0); Mean Corpuscular Hemoglobin 31.5 pg (27.0-31.0); Mean Corpuscular Volume 91.5 fL (78.0-98.0); Monocytes 10 % (0-10); Neutrophil 73 % (42-75); Platelet Count 256 thou/uL (130-400); RBC Distribution Width 12.9 % (11.5-14.5); Red Blood Cell (RBC) Count 4.64 mill/uL (4.70-6.10); White Blood Cell (WBC) Count 15.5 thou/uL (4.8-10.8)
[2020-01-29 05:29] LABS: Potassium 2.9 mmol/L (3.5-5.1)
[2020-01-29] MEDS ORDERED: Potassium Chloride 20 MEQ TAB PO SCH (06:00)
[2020-01-29] MEDS: Tamsulosin HCl 0.4 MG CAP PO SCH (10:00)
[2020-01-29] MEDS: Carvedilol 25 MG TAB PO SCH ×2 (10:00→21:26)
[2020-01-29] MEDS: Amlodipine 10 MG TAB PO SCH (10:01)
[2020-01-29] MEDS: Furosemide 40 MG TAB PO SCH (10:01)
[2020-01-29] MEDS: Famotidine/PF 20 mg/2ml Vial SLOW IVP SCH (10:01)
[2020-01-29] MEDS: cefTRIAXone\\ROCEPHIN 2 GM in Sodium Chloride 0.9% 100 ML IVPB SCH (11:23)
--- NOTE | 2020-01-29 11:49 | PDOC.HOSPP ---
- Subjective Encounter Date: 01/29/20 Subjective: I feel that the patient's mental status has deteriorated - Objective Vital Signs & Weight: Vital Signs (12 hours) Temp Pulse Resp BP BP Pulse Ox 01/29/20 11:13 98.4 F 83 24 H 147/79 H 94 L 01/29/20 10:01 79 01/29/20 07:14 98.7 F 79 18 139/86 96 01/29/20 04:26 99.9 F H 89 20 151/90 H 93 L 01/29/20 01:50 88 147/89 H 01/29/20 01:09 82 161/84 H Weight Admit Weight 212 lb Weight 206 lb Most Recent Monitor Data Heart Rate from ECG 75 NIBP 165/74 NIBP BP-Mean 104 Respiration from ECG 23 SpO2 95 I&O: 01/28/20 01/29/20 01/30/20 06:59 06:59 06:59 Intake Total 900 Output Total 800 Balance 100 Result Diagrams: 01/29/20 04:45 01/29/20 04:45 Hospitalist ROS - Medication Medications: Active Medications Generic Name Dose Route Start Last Admin Trade Name Freq PRN Reason Stop Dose Admin Acetaminophen 650 mg 01/25/20 11:11 01/29/20 05:04 Tylenol PO 650 mg Q6H PRN Administration Fever > 101 or Headache Amlodipine Besylate 10 mg 01/27/20 09:00 01/29/20 10:01 Norvasc PO 10 mg DAILY JERMAINE Administration Carvedilol 50 mg 01/26/20 21:00 01/29/20 10:00 Coreg PO 50 mg BID JERMAINE Administration Famotidine 20 mg 01/26/20 09:00 01/29/20 10:01 Pepcid SLOW IVP 20 mg DAILY JERMAINE Administration Furosemide 40 mg 01/27/20 09:00 01/29/20 10:01 Lasix PO 40 mg DAILY JERMAINE Administration Hydralazine HCl 10 mg 01/27/20 23:58 01/29/20 01:09 Apresoline SLOW IVP 10 mg Q4H PRN Administration SBP > 150 or DBP > 105 Nicardipine HCl 25 mg/ Sodium 250 mls @ 0 mls/hr 01/25/20 11:00 01/26/20 20: 05 Chloride IVPB 250 mls INF JERMAINE Administration Ceftriaxone Sodium 2 gm/ 100 mls @ 200 mls/hr 01/27/20 10:00 01/29/20 11:23 Sodium Chloride IVPB 100 mls 1000 JERMAINE Administration Labetalol HCl 10 mg 01/27/20 23:57 01/28/20 00:24 Normodyne SLOW IVP 10 mg Q4H PRN Administration Systolic BP > 150 Potassium Chloride 40 meq 01/29/20 07:00 01/29/20 11:29 Klor-Con PO 01/29/20 12:01 40 meq 0700,1200 JERMAINE Administration Sodium Chloride 10 ml 01/25/20 21:00 01/29/20 10:03 Flush - Normal Saline IVF 10 ml Q12HR JERMAINE Administration Sodium Chloride 10 ml 01/25/20 11:11 01/27/20 15:04 Flush - Normal Saline IVF 10 ml PRN PRN Administration Saline Flush Tamsulosin HCl 0.4 mg 01/27/20 09:00 01/29/20 10:00 Flomax PO 0.4 mg DAILY JERMAINE Administration - Exam General Appearance: ill appearing ENT: normocephalic atraumatic Neck: supple Heart: RRR Respiratory: normal chest expansion, no tachypnea Gastrointestinal: soft Extremities: no cyanosis Neurological: hemiplegia Neurological - other findings: L hemianopsia Hosp A/P (1) ICH (intracerebral hemorrhage) Code(s): I61.9 - NONTRAUMATIC INTRACEREBRAL HEMORRHAGE, UNSPECIFIED Status: Acute (2) Hypertensive emergency Code(s): I16.1 - HYPERTENSIVE EMERGENCY Status: Acute (3) Atrial fibrillation Code(s): I48.91 - UNSPECIFIED ATRIAL FIBRILLATION Status: Acute (4) Cardiomyopathy Code(s): I42.9 - CARDIOMYOPATHY, UNSPECIFIED Status: Acute - Plan The patient was seen and examined. He remains confused today and does have profound weakness bilaterally. Participating in PT and ST. Repeat CT scan of the head yesterday showed reduced size of the occipital hematoma. I will add hydralazine 75 mg po bid to his medication regimen Replace K Discussed code status with family DNR per his advanced Directive
[2020-01-29] MEDS: Potassium Chloride 10 MEQ in Premix Bag 1 BAG IVPB SCH ×2 (12:07→13:39)
[2020-01-29 15:54] LABS: Potassium 3.5 mmol/L (3.5-5.1)
--- NOTE | 2020-01-29 17:27 | RAD ---
PORTABLE CHEST: 01/29/20 HISTORY: Question aspiration. COMPARISON: 01/27/20. There is some streaky hazy density in the left lung base slightly more prominent today, suspicious fo r developing infiltrate. Lungs otherwise clear. Heart and mediastinum unremarkable. AICD leads unchanged. IMPRESSION: Question developing infiltrate in the left lung base. Follow-up recommended. POS: SANDRAH
[2020-01-29] MEDS: hydrALAZINE 25 MG TAB PO SCH (21:26)
[2020-01-29] MEDS: Primidone 50 MG TAB PO SCH (21:27)
[2020-01-30 05:29] LABS: Anion Gap 11 mmol/L (10-20); BUN (Urea Nitrogen) 23 mg/dL (8.4-25.7); Calc. Creatinine Clearance 76 mL/min (70-130); Calcium 9.3 mg/dL (7.8-10.44); Carbon Dioxide 29 mmol/L (23-31); Chloride 101 mmol/L (98-107); Estimated GFR-MDRD 69; Glucose 123 mg/dL (83-110); Magnesium 1.9 mg/dL (1.6-2.6); Potassium 3.4 mmol/L (3.5-5.1); Sodium 138 mmol/L (136-145)
[2020-01-30 06:26] LABS: Band 6 % (5-11); Hemoglobin 14.2 g/dL (14.0-18.0); Lymphocytes 18 % (21-51); MDiff Complete? YES; Mean Corpuscular HGB CONC 33.2 g/dL (32.0-36.0); Mean Corpuscular Hemoglobin 30.8 pg (27.0-31.0); Mean Corpuscular Volume 92.7 fL (78.0-98.0); Mean Platelet Volume 9.2 fL (7.4-10.4); Monocytes 11 % (0-10); Neutrophil 65 % (42-75); Platelet Count 243 thou/uL (130-400); RBC Distribution Width 13.3 % (11.5-14.5); Red Blood Cell (RBC) Count 4.61 mill/uL (4.70-6.10); White Blood Cell (WBC) Count 16.3 thou/uL (4.8-10.8)
[2020-01-30] MEDS ORDERED: Potassium Chloride 20 MEQ TAB PO SCH (09:00)
[2020-01-30 11:18] LABS: Actual Bicarbonate (HCO3a) 25.1 mEq/L (22-28); Analyzer IN Cardio OR; Base Excess (BEa) 2.4 mEq/L (-2.0 to +3.0); CO2 Tension 33.4 mmHg (35.0-45.0); Calcium, Ionized 1.17 mmol/L (1.12-1.30); Carboxyhemoglobin (COHb) 0.9 gm% (0.0-3.0); Hemoglobin (Hb) 15.6 g/dL (14.0-18.0); O2 Tension (PaO2) 69.1 mmHg (> 60.0); Potassium - ABG Lab 3.34 mmol/L (3.70-5.30); pH, Arterial 7.49 (7.35-7.45)
[2020-01-30 11:33] LABS: Puncture Site RR
[2020-01-30] MEDS: Ampicillin/Sulbactam 1.5 GM in Sodium Chloride 0.9% 100 ML IVPB SCH ×2 (11:42→18:05)
--- NOTE | 2020-01-30 11:42 | CT ---
Exam: Brain CT without IV contrast: HISTORY: Altered mental status, follow-up hemorrhage COMPARISON: 01/28/2020, 01/26/2020 FINDINGS: Persistent overall stable left occipital intraparenchymal hematoma. Stable 0.5 cm midline shift to th e right. No evidence for new hemorrhage. IMPRESSION: Stable left parietal lobe intraparenchymal hematoma with focal mass effect with 0.5 cm midline shift to the right. No new hemorrhage.
[2020-01-30] MEDS: Amlodipine 10 MG TAB PO SCH (13:12)
[2020-01-30] MEDS: Carvedilol 25 MG TAB PO SCH ×2 (13:12→20:57)
[2020-01-30] MEDS: Furosemide 40 MG TAB PO SCH (13:13)
[2020-01-30] MEDS: Venlafaxine HCl XR 150 MG CAP PO SCH (13:13)
[2020-01-30] MEDS: Primidone 50 MG TAB PO SCH ×2 (13:13→20:57)
[2020-01-30] MEDS: Tamsulosin HCl 0.4 MG CAP PO SCH (13:13)
[2020-01-30] MEDS: hydrALAZINE 25 MG TAB PO SCH ×2 (13:13→20:57)
[2020-01-30] MEDS: Lactinex Tablet PO SCH (13:13)
--- NOTE | 2020-01-30 15:04 | RAD ---
EXAM: XR Ba Swallow W/Speech Therap PROVIDED CLINICAL HISTORY: Dysphagia following cerebral infarction. Left occipital hemorrhage. Dysphagia, unspecified. Feeding d ifficulties COMPARISON: None FINDINGS: This examination was performed in conjunction with speech pathology. Patient was administered varying consistencies of barium during the exam. Patient demonstrates decreased formation of bolus into the posterior pharynx with significant premature spill of barium consistencies prior to initiation of the swallowing mechanism. Prominent residue is present within the vallecula and piriform sinuses. No definite aspiration or penetration was appreciated during the exam. Degenerative changes in the vi sualized upper cervical spine. Fluoroscopy: Time-1.2 minutes Dose-0.651 mGy centimeter squared IMPRESSION: 1. Significant premature spill of contrast into the vallecula and piriform sinuses prior to initiatio n of swallowing mechanism. 2. No cristela aspiration or penetration was demonstrated during the exam.
[2020-01-30] MEDS: Famotidine/PF 20 mg/2ml Vial SLOW IVP SCH (18:04)
[2020-01-30] MEDS ORDERED: Acetaminophen 650 MG Suppository PR PRN (20:45)
[2020-01-30] MEDS ORDERED: cloNIDine 0.1 MG TAB PO SCH (21:00)
[2020-01-30] MEDS: Acetaminophen 325 MG TAB PO PRN (21:02)
[2020-01-30] MEDS ORDERED: Morphine 2 MG/ML SYRINGE SLOW IVP PRN (22:01)
--- NOTE | 2020-01-30 22:05 | PDOC.HOSPP ---
- Subjective Encounter Date: 01/30/20 Encounter Time: 12:00 - Objective Vital Signs & Weight: Vital Signs (12 hours) Temp Pulse Resp BP BP Pulse Ox 01/30/20 20:57 94 159/91 H 01/30/20 20:37 101.6 F H 20 169/61 H 01/30/20 15:41 98.9 F 80 22 H 178/90 H 93 L 01/30/20 11:38 97.2 F L 87 14 141/81 H 96 Weight Admit Weight 212 lb Weight 208 lb 1.6 oz Most Recent Monitor Data Heart Rate from ECG 75 NIBP 165/74 NIBP BP-Mean 104 Respiration from ECG 23 SpO2 95 Result Diagrams: 01/30/20 04:56 01/30/20 04:56 Hospitalist ROS - Medication Medications: Active Medications Generic Name Dose Route Start Last Admin Trade Name Freq PRN Reason Stop Dose Admin Acetaminophen 650 mg 01/25/20 11:11 01/30/20 21:02 Tylenol PO 650 mg Q6H PRN Administration Fever > 101 or Headache Acidophilus 1 tab 01/30/20 09:00 01/30/20 13:13 Floranex PO Not Given DAILY JERMAINE Amlodipine Besylate 10 mg 01/27/20 09:00 01/30/20 13:12 Norvasc PO Not Given DAILY JERMAINE Carvedilol 50 mg 01/26/20 21:00 01/30/20 20:57 Coreg PO 50 mg BID JERMAINE Administration Famotidine 20 mg 01/26/20 09:00 01/30/20 18:04 Pepcid SLOW IVP 20 mg DAILY JERMAINE Administration Furosemide 40 mg 01/27/20 09:00 01/30/20 13:13 Lasix PO Not Given DAILY JERMAINE Hydralazine HCl 10 mg 01/27/20 23:58 01/29/20 01:09 Apresoline SLOW IVP 10 mg Q4H PRN Administration SBP > 150 or DBP > 105 Hydralazine HCl 75 mg 01/29/20 21:00 01/30/20 20:57 Apresoline PO 75 mg BID JERMAINE Administration Nicardipine HCl 25 mg/ Sodium 250 mls @ 0 mls/hr 01/25/20 11:00 01/26/20 20: 05 Chloride IVPB 250 mls INF JERMAINE Administration Ampicillin Sodium/Sulbactam 100 mls @ 200 mls/hr 01/30/20 12:00 01/30/20 18: 05 Sodium 1.5 gm/ Sodium Chloride IVPB 100 mls Q6HR JERMAINE Administration Labetalol HCl 10 mg 01/27/20 23:57 01/28/20 00:24 Normodyne SLOW IVP 10 mg Q4H PRN Administration Systolic BP > 150 Primidone 50 mg 01/30/20 09:00 01/30/20 13:13 Mysoline PO Not Given QAM JERMAINE Primidone 100 mg 01/29/20 21:00 01/30/20 20:57 Mysoline PO 100 mg HS JERMAINE Administration Sodium Chloride 10 ml 01/25/20 21:00 01/30/20 20:58 Flush - Normal Saline IVF 10 ml Q12HR JERMAINE Administration Sodium Chloride 10 ml 01/25/20 11:11 01/27/20 15:04 Flush - Normal Saline IVF 10 ml PRN PRN Administration Saline Flush Tamsulosin HCl 0.4 mg 01/27/20 09:00 01/30/20 13:13 Flomax PO Not Given DAILY JERMAINE Venlafaxine HCl 150 mg 01/30/20 09:00 01/30/20 13:13 Effexor Xr PO Not Given DAILY JERMAINE - Exam General Appearance: ill appearing ENT: normocephalic atraumatic Neck: supple Heart: RRR Respiratory: rhonchi, tachypneic Gastrointestinal: soft, non-tender, non-distended, normal bowel sounds Neurological: speech deficit, vision deficit Neurological - other findings: B/L WEAKNESS Hosp A/P (1) ICH (intracerebral hemorrhage) Code(s): I61.9 - NONTRAUMATIC INTRACEREBRAL HEMORRHAGE, UNSPECIFIED Status: Acute (2) Hypertensive emergency Code(s): I16.1 - HYPERTENSIVE EMERGENCY Status: Acute (3) Atrial fibrillation Code(s): I48.91 - UNSPECIFIED ATRIAL FIBRILLATION Status: Acute (4) Cardiomyopathy Code(s): I42.9 - CARDIOMYOPATHY, UNSPECIFIED Status: Acute (5) Aspiration pneumonia Code(s): J69.0 - PNEUMONITIS DUE TO INHALATION OF FOOD AND VOMIT Status: Acute - Plan The patient's mental status is worsening. CT scan of the head showing unchanged size hematoma with mass-effect and midline shift. Start Solu-Medrol 80 mg IV every 6 hours. Continue current antihypertensive medications. Continue speech therapy and modified diet as tolerated. Continue Unasyn for aspiration pneumonia. I had a discussion with the daughter Sandra who is the power of consumer attorney about his CODE STATUS today. Continue DNR at this time.
[2020-01-30] MEDS ORDERED: Bacteriostatic Water 30 ML VIAL FS PRN (22:07)
[2020-01-31] MEDS: Ampicillin/Sulbactam 1.5 GM in Sodium Chloride 0.9% 100 ML IVPB SCH ×5 (00:34→23:31)
[2020-01-31] MEDS: methylPREDNISolone Sod Succ/PF 125 MG/2 ML VIAL IVP SCH ×5 (00:34→23:30)
[2020-01-31 05:29] LABS: Anion Gap 14 mmol/L (10-20); BUN (Urea Nitrogen) 32 mg/dL (8.4-25.7); Calc. Creatinine Clearance 74 mL/min (70-130); Calcium 8.9 mg/dL (7.8-10.44); Carbon Dioxide 23 mmol/L (23-31); Chloride 105 mmol/L (98-107); Estimated GFR-MDRD 67; Glucose 127 mg/dL (83-110); Magnesium 2.1 mg/dL (1.6-2.6); Potassium 4.3 mmol/L (3.5-5.1); Sodium 138 mmol/L (136-145)
[2020-01-31 06:11] LABS: Hemoglobin 13.8 g/dL (14.0-18.0); Lymphocytes 12 % (21-51); MDiff Complete? YES; Mean Corpuscular HGB CONC 32.9 g/dL (32.0-36.0); Mean Corpuscular Volume 94.2 fL (78.0-98.0); Mean Platelet Volume 9.5 fL (7.4-10.4); Neutrophil 88 % (42-75); Platelet Count 221 thou/uL (130-400); Platelet Morphology Comment Appears Adequate; RBC Distribution Width 13.2 % (11.5-14.5); RBC Morphology Normal; Red Blood Cell (RBC) Count 4.46 mill/uL (4.70-6.10); White Blood Cell (WBC) Count 12.5 thou/uL (4.8-10.8)
[2020-01-31] MEDS: Carvedilol 25 MG TAB PO SCH ×2 (09:29→20:23)
[2020-01-31] MEDS: Tamsulosin HCl 0.4 MG CAP PO SCH (09:29)
[2020-01-31] MEDS: Lactinex Tablet PO SCH (09:29)
[2020-01-31] MEDS: Venlafaxine HCl XR 150 MG CAP PO SCH (09:29)
[2020-01-31] MEDS: hydrALAZINE 25 MG TAB PO SCH ×2 (09:29→20:23)
[2020-01-31] MEDS: Amlodipine 10 MG TAB PO SCH (09:29)
[2020-01-31] MEDS: Primidone 50 MG TAB PO SCH ×2 (09:30→20:24)
[2020-01-31] MEDS: Famotidine/PF 20 mg/2ml Vial SLOW IVP SCH (09:30)
[2020-01-31] MEDS: Furosemide 40 MG TAB PO SCH (09:30)
[2020-01-31 13:16] VITALS: BMI 32.3
--- NOTE | 2020-01-31 22:18 | PDOC.HOSPP ---
- Subjective Encounter Date: 01/31/20 - Objective Vital Signs & Weight: Vital Signs (12 hours) Temp Pulse Pulse Pulse Resp BP BP 01/31/20 19:35 98.4 F 83 22 H 01/31/20 15:55 98.9 F 79 18 01/31/20 13:30 76 78 117/71 107/61 01/31/20 11:38 98.7 F 69 18 BP Pulse Ox 01/31/20 19:35 132/75 91 L 01/31/20 15:55 126/65 92 L 01/31/20 13:30 01/31/20 11:38 113/59 L 92 L Weight Admit Weight 212 lb Weight 206 lb 8 oz Most Recent Monitor Data Heart Rate from ECG 75 NIBP 165/74 NIBP BP-Mean 104 Respiration from ECG 23 SpO2 95 I&O: 01/30/20 01/31/20 02/01/20 06:59 06:59 06:59 Intake Total 220 118 Output Total 200 Balance 220 -82 Result Diagrams: 01/31/20 05:44 01/31/20 04:35 Hospitalist ROS - Medication Medications: Active Medications Generic Name Dose Route Start Last Admin Trade Name Freq PRN Reason Stop Dose Admin Acetaminophen 650 mg 01/25/20 11:11 01/30/20 21:02 Tylenol PO 650 mg Q6H PRN Administration Fever > 101 or Headache Acidophilus 1 tab 01/30/20 09:00 01/31/20 09:29 Floranex PO 1 tab DAILY JERMAINE Administration Amlodipine Besylate 10 mg 01/27/20 09:00 01/31/20 09:29 Norvasc PO 10 mg DAILY JERMAINE Administration Carvedilol 50 mg 01/26/20 21:00 01/31/20 20:23 Coreg PO 50 mg BID JERMAINE Administration Famotidine 20 mg 01/26/20 09:00 01/31/20 09:30 Pepcid SLOW IVP 20 mg DAILY JERMAINE Administration Furosemide 40 mg 01/27/20 09:00 01/31/20 09:30 Lasix PO 40 mg DAILY JERMAINE Administration Hydralazine HCl 10 mg 01/27/20 23:58 01/29/20 01:09 Apresoline SLOW IVP 10 mg Q4H PRN Administration SBP > 150 or DBP > 105 Hydralazine HCl 75 mg 01/29/20 21:00 01/31/20 20:23 Apresoline PO 75 mg BID JERMAINE Administration Nicardipine HCl 25 mg/ Sodium 250 mls @ 0 mls/hr 01/25/20 11:00 01/26/20 20: 05 Chloride IVPB 250 mls INF JERMAINE Administration Ampicillin Sodium/Sulbactam 100 mls @ 200 mls/hr 01/30/20 12:00 01/31/20 18: 06 Sodium 1.5 gm/ Sodium Chloride IVPB 100 mls Q6HR JERMAINE Administration Labetalol HCl 10 mg 01/27/20 23:57 01/28/20 00:24 Normodyne SLOW IVP 10 mg Q4H PRN Administration Systolic BP > 150 Methylprednisolone Sodium Succinate 80 mg 01/30/20 23:59 01/31/20 18:06 Solu-Medrol IVP 80 mg Q6HR JERMAINE Administration Primidone 50 mg 01/30/20 09:00 01/31/20 09:30 Mysoline PO 50 mg QAM JERMAINE Administration Primidone 100 mg 01/29/20 21:00 01/31/20 20:24 Mysoline PO 100 mg HS JERMAINE Administration Sodium Chloride 10 ml 01/25/20 21:00 01/31/20 20:24 Flush - Normal Saline IVF 10 ml Q12HR JERMAINE Administration Sodium Chloride 10 ml 01/25/20 11:11 01/27/20 15:04 Flush - Normal Saline IVF 10 ml PRN PRN Administration Saline Flush Tamsulosin HCl 0.4 mg 01/27/20 09:00 01/31/20 09:29 Flomax PO 0.4 mg DAILY JERMAINE Administration Venlafaxine HCl 150 mg 01/30/20 09:00 01/31/20 09:29 Effexor Xr PO 150 mg DAILY JERMAINE Administration - Exam General Appearance: awake alert ENT: normocephalic atraumatic Neck: supple, no JVD Heart: RRR, no murmur, no gallops, no rubs, normal peripheral pulses Respiratory: normal chest expansion, no tachypnea, rhonchi Gastrointestinal: soft, non-tender, non-distended, normal bowel sounds Hosp A/P (1) ICH (intracerebral hemorrhage) Code(s): I61.9 - NONTRAUMATIC INTRACEREBRAL HEMORRHAGE, UNSPECIFIED Status: Acute (2) Hypertensive emergency Code(s): I16.1 - HYPERTENSIVE EMERGENCY Status: Acute (3) Atrial fibrillation Code(s): I48.91 - UNSPECIFIED ATRIAL FIBRILLATION Status: Acute (4) Cardiomyopathy Code(s): I42.9 - CARDIOMYOPATHY, UNSPECIFIED Status: Acute (5) Aspiration pneumonia Code(s): J69.0 - PNEUMONITIS DUE TO INHALATION OF FOOD AND VOMIT Status: Acute - Plan 01/29: The patient's mental status is worsening. CT scan of the head showing unchanged size hematoma with mass-effect and midline shift. Start Solu-Medrol 80 mg IV every 6 hours. Continue current antihypertensive medications. Continue speech therapy and modified diet as tolerated. Continue Unasyn for aspiration pneumonia. I had a discussion with the daughter Sandra who is the power of commercial litigation attorney about his CODE STATUS today. Continue DNR at this time. 01/30: The patient's mental status has significantly improved since initiation of corticosteroids yesterday. He is able to answer questions appropriately. Continue corticosteroids and continue antibiotics for aspiration pneumonia.
[2020-02-01 06:03] LABS: Band 3 % (5-11); Hemoglobin 13.2 g/dL (14.0-18.0); Lymphocytes 7 % (21-51); MDiff Complete? YES; Mean Corpuscular HGB CONC 32.1 g/dL (32.0-36.0); Mean Corpuscular Hemoglobin 30.2 pg (27.0-31.0); Mean Corpuscular Volume 94.3 fL (78.0-98.0); Monocytes 1 % (0-10); Neutrophil 88 % (42-75); Platelet Count 241 thou/uL (130-400); Platelet Morphology Comment Appears Adequate; RBC Distribution Width 13.2 % (11.5-14.5); RBC Morphology Normal; Reactive Lymphocytes 1 % (0-10); Red Blood Cell (RBC) Count 4.36 mill/uL (4.70-6.10); White Blood Cell (WBC) Count 15.3 thou/uL (4.8-10.8)
[2020-02-01 06:05] LABS: Anion Gap 18 mmol/L (10-20); BUN (Urea Nitrogen) 48 mg/dL (8.4-25.7); Calc. Creatinine Clearance 69 mL/min (70-130); Calcium 9.6 mg/dL (7.8-10.44); Carbon Dioxide 23 mmol/L (23-31); Chloride 106 mmol/L (98-107); Estimated GFR-MDRD 62; Glucose 174 mg/dL (83-110); Magnesium 2.3 mg/dL (1.6-2.6); Potassium 3.6 mmol/L (3.5-5.1); Sodium 143 mmol/L (136-145)
[2020-02-01] MEDS: methylPREDNISolone Sod Succ/PF 125 MG/2 ML VIAL IVP SCH ×2 (06:19→12:41)
[2020-02-01] MEDS: Ampicillin/Sulbactam 1.5 GM in Sodium Chloride 0.9% 100 ML IVPB SCH ×2 (06:19→12:05)
[2020-02-01] MEDS: Amlodipine 10 MG TAB PO SCH (09:20)
[2020-02-01] MEDS: Furosemide 40 MG TAB PO SCH (09:20)
[2020-02-01] MEDS: Tamsulosin HCl 0.4 MG CAP PO SCH (09:20)
[2020-02-01] MEDS: Primidone 50 MG TAB PO SCH (09:20)
[2020-02-01] MEDS: Lactinex Tablet PO SCH (09:20)
[2020-02-01] MEDS: hydrALAZINE 25 MG TAB PO SCH (09:20)
[2020-02-01] MEDS: Carvedilol 25 MG TAB PO SCH (09:20)
[2020-02-01] MEDS: Venlafaxine HCl XR 150 MG CAP PO SCH (09:20)
[2020-02-01] MEDS: Famotidine/PF 20 mg/2ml Vial SLOW IVP SCH (09:21)
--- NOTE | 2020-02-01 10:13 | PDOC.HOSPP ---
- Subjective Encounter Date: 02/01/20 Subjective: Feels better - Objective Vital Signs & Weight: Vital Signs (12 hours) Temp Pulse Resp BP Pulse Ox 02/01/20 09:20 64 02/01/20 07:56 98.1 F 64 18 145/80 H 94 L 02/01/20 03:22 98.1 F 88 20 140/73 93 L 01/31/20 23:25 98.4 F 83 22 H 142/87 H 92 L Weight Admit Weight 212 lb Weight 205 lb 8 oz Most Recent Monitor Data Heart Rate from ECG 75 NIBP 165/74 NIBP BP-Mean 104 Respiration from ECG 23 SpO2 95 I&O: 01/31/20 02/01/20 02/02/20 06:59 06:59 06:59 Intake Total 220 118 Output Total 500 Balance 220 -382 Result Diagrams: 02/01/20 05:04 02/01/20 05:04 Hospitalist ROS - Medication Medications: Active Medications Generic Name Dose Route Start Last Admin Trade Name Freq PRN Reason Stop Dose Admin Acetaminophen 650 mg 01/25/20 11:11 01/30/20 21:02 Tylenol PO 650 mg Q6H PRN Administration Fever > 101 or Headache Acidophilus 1 tab 01/30/20 09:00 02/01/20 09:20 Floranex PO 1 tab DAILY JERMAINE Administration Amlodipine Besylate 10 mg 01/27/20 09:00 02/01/20 09:20 Norvasc PO 10 mg DAILY JERMAINE Administration Carvedilol 50 mg 01/26/20 21:00 02/01/20 09:20 Coreg PO 50 mg BID JERMAINE Administration Famotidine 20 mg 01/26/20 09:00 02/01/20 09:21 Pepcid SLOW IVP 20 mg DAILY JERMAINE Administration Furosemide 40 mg 01/27/20 09:00 02/01/20 09:20 Lasix PO 40 mg DAILY JERMAINE Administration Hydralazine HCl 10 mg 01/27/20 23:58 01/29/20 01:09 Apresoline SLOW IVP 10 mg Q4H PRN Administration SBP > 150 or DBP > 105 Hydralazine HCl 75 mg 01/29/20 21:00 02/01/20 09:20 Apresoline PO 75 mg BID JERMAINE Administration Nicardipine HCl 25 mg/ Sodium 250 mls @ 0 mls/hr 01/25/20 11:00 01/26/20 20: 05 Chloride IVPB 250 mls INF JERMAINE Administration Ampicillin Sodium/Sulbactam 100 mls @ 200 mls/hr 01/30/20 12:00 02/01/20 06: 19 Sodium 1.5 gm/ Sodium Chloride IVPB 100 mls Q6HR JERMAINE Administration Labetalol HCl 10 mg 01/27/20 23:57 01/28/20 00:24 Normodyne SLOW IVP 10 mg Q4H PRN Administration Systolic BP > 150 Methylprednisolone Sodium Succinate 80 mg 01/30/20 23:59 02/01/20 06:19 Solu-Medrol IVP 80 mg Q6HR JERMAINE Administration Primidone 50 mg 01/30/20 09:00 02/01/20 09:20 Mysoline PO 50 mg QAM JERMAINE Administration Primidone 100 mg 01/29/20 21:00 01/31/20 20:24 Mysoline PO 100 mg HS JERMAINE Administration Sodium Chloride 10 ml 01/25/20 21:00 02/01/20 09:21 Flush - Normal Saline IVF 10 ml Q12HR JERMAINE Administration Sodium Chloride 10 ml 01/25/20 11:11 01/27/20 15:04 Flush - Normal Saline IVF 10 ml PRN PRN Administration Saline Flush Tamsulosin HCl 0.4 mg 01/27/20 09:00 02/01/20 09:20 Flomax PO 0.4 mg DAILY JERMAINE Administration Venlafaxine HCl 150 mg 01/30/20 09:00 02/01/20 09:20 Effexor Xr PO 150 mg DAILY JERMAINE Administration - Exam General Appearance: awake alert ENT: normocephalic atraumatic Neck: supple, symmetric, no JVD Respiratory: normal chest expansion, no tachypnea Extremities: no cyanosis, no clubbing Neurological: cranial nerve grossly intact, no focal deficits Psychiatric: normal affect, normal behavior, A&O x 3 Hosp A/P (1) ICH (intracerebral hemorrhage) Code(s): I61.9 - NONTRAUMATIC INTRACEREBRAL HEMORRHAGE, UNSPECIFIED Status: Acute (2) Hypertensive emergency Code(s): I16.1 - HYPERTENSIVE EMERGENCY Status: Acute (3) Atrial fibrillation Code(s): I48.91 - UNSPECIFIED ATRIAL FIBRILLATION Status: Acute (4) Cardiomyopathy Code(s): I42.9 - CARDIOMYOPATHY, UNSPECIFIED Status: Acute (5) Aspiration pneumonia Code(s): J69.0 - PNEUMONITIS DUE TO INHALATION OF FOOD AND VOMIT Status: Acute - Plan 01/29: The patient's mental status is worsening. CT scan of the head showing unchanged size hematoma with mass-effect and midline shift. Start Solu-Medrol 80 mg IV every 6 hours. Continue current antihypertensive medications. Continue speech therapy and modified diet as tolerated. Continue Unasyn for aspiration pneumonia. I had a discussion with the daughter Sandra who is the power of claims attorney about his CODE STATUS today. Continue DNR at this time. 01/30: The patient's mental status has significantly improved since initiation of corticosteroids yesterday. He is able to answer questions appropriately. Continue corticosteroids and continue antibiotics for aspiration pneumonia. 01/31: Leukopenia resolved Hb 7.7. Transfuse one unit of PRBCs. Replace potassium and magnesium.
[2020-02-01] MEDS ORDERED: Magnesium Sulfate 3 GM in Sodium Chloride 0.9% 100 ML IVPB SCH (10:15)
--- NOTE | 2020-02-01 11:23 | PDOC.HOSPP ---
- Subjective Encounter Date: 02/01/20 Subjective: The patient is alert and oriented. - Objective Vital Signs & Weight: Vital Signs (12 hours) Temp Pulse Resp BP Pulse Ox 02/01/20 09:20 64 02/01/20 08:45 94 L 02/01/20 07:56 98.1 F 64 18 145/80 H 94 L 02/01/20 03:22 98.1 F 88 20 140/73 93 L 01/31/20 23:25 98.4 F 83 22 H 142/87 H 92 L Weight Admit Weight 212 lb Weight 205 lb 8 oz Most Recent Monitor Data Heart Rate from ECG 75 NIBP 165/74 NIBP BP-Mean 104 Respiration from ECG 23 SpO2 95 I&O: 01/31/20 02/01/20 02/02/20 06:59 06:59 06:59 Intake Total 220 118 Output Total 500 Balance 220 -382 Result Diagrams: 02/01/20 05:04 02/01/20 05:04 Hospitalist ROS - Medication Medications: Active Medications Generic Name Dose Route Start Last Admin Trade Name Freq PRN Reason Stop Dose Admin Acetaminophen 650 mg 01/25/20 11:11 01/30/20 21:02 Tylenol PO 650 mg Q6H PRN Administration Fever > 101 or Headache Acidophilus 1 tab 01/30/20 09:00 02/01/20 09:20 Floranex PO 1 tab DAILY JERMAINE Administration Amlodipine Besylate 10 mg 01/27/20 09:00 02/01/20 09:20 Norvasc PO 10 mg DAILY JERMAINE Administration Carvedilol 50 mg 01/26/20 21:00 02/01/20 09:20 Coreg PO 50 mg BID JERMAINE Administration Famotidine 20 mg 01/26/20 09:00 02/01/20 09:21 Pepcid SLOW IVP 20 mg DAILY JERMAINE Administration Furosemide 40 mg 01/27/20 09:00 02/01/20 09:20 Lasix PO 40 mg DAILY JERMAINE Administration Hydralazine HCl 10 mg 01/27/20 23:58 01/29/20 01:09 Apresoline SLOW IVP 10 mg Q4H PRN Administration SBP > 150 or DBP > 105 Hydralazine HCl 75 mg 01/29/20 21:00 02/01/20 09:20 Apresoline PO 75 mg BID JERMAINE Administration Nicardipine HCl 25 mg/ Sodium 250 mls @ 0 mls/hr 01/25/20 11:00 01/26/20 20: 05 Chloride IVPB 250 mls INF JERMAINE Administration Ampicillin Sodium/Sulbactam 100 mls @ 200 mls/hr 01/30/20 12:00 02/01/20 06: 19 Sodium 1.5 gm/ Sodium Chloride IVPB 100 mls Q6HR JERMAINE Administration Labetalol HCl 10 mg 01/27/20 23:57 01/28/20 00:24 Normodyne SLOW IVP 10 mg Q4H PRN Administration Systolic BP > 150 Methylprednisolone Sodium Succinate 80 mg 01/30/20 23:59 02/01/20 06:19 Solu-Medrol IVP 80 mg Q6HR JERMAINE Administration Primidone 50 mg 01/30/20 09:00 02/01/20 09:20 Mysoline PO 50 mg QAM JERMAINE Administration Primidone 100 mg 01/29/20 21:00 01/31/20 20:24 Mysoline PO 100 mg HS JERMAINE Administration Sodium Chloride 10 ml 01/25/20 21:00 02/01/20 09:21 Flush - Normal Saline IVF 10 ml Q12HR JERMAINE Administration Sodium Chloride 10 ml 01/25/20 11:11 01/27/20 15:04 Flush - Normal Saline IVF 10 ml PRN PRN Administration Saline Flush Tamsulosin HCl 0.4 mg 01/27/20 09:00 02/01/20 09:20 Flomax PO 0.4 mg DAILY JERMAINE Administration Venlafaxine HCl 150 mg 01/30/20 09:00 02/01/20 09:20 Effexor Xr PO 150 mg DAILY JERMAINE Administration - Exam General Appearance: awake alert ENT: normocephalic atraumatic Neck: supple, no JVD Heart: RRR, no murmur, no gallops, no rubs Respiratory: CTAB, normal chest expansion, no tachypnea Gastrointestinal: soft, non-tender, non-distended, normal bowel sounds Neurological - other findings: L Hemianopsia and 3-4/5 weakness Hosp A/P (1) ICH (intracerebral hemorrhage) Code(s): I61.9 - NONTRAUMATIC INTRACEREBRAL HEMORRHAGE, UNSPECIFIED Status: Acute (2) Hypertensive emergency Code(s): I16.1 - HYPERTENSIVE EMERGENCY Status: Acute (3) Atrial fibrillation Code(s): I48.91 - UNSPECIFIED ATRIAL FIBRILLATION Status: Acute (4) Cardiomyopathy Code(s): I42.9 - CARDIOMYOPATHY, UNSPECIFIED Status: Acute (5) Aspiration pneumonia Code(s): J69.0 - PNEUMONITIS DUE TO INHALATION OF FOOD AND VOMIT Status: Acute - Plan 01/29: The patient's mental status is worsening. CT scan of the head showing unchanged size hematoma with mass-effect and midline shift. Start Solu-Medrol 80 mg IV every 6 hours. Continue current antihypertensive medications. Continue speech therapy and modified diet as tolerated. Continue Unasyn for aspiration pneumonia. I had a discussion with the daughter Sandra who is the power of employment law attorney about his CODE STATUS today. Continue DNR at this time. 01/30: The patient's mental status has significantly improved since initiation of corticosteroids yesterday. He is able to answer questions appropriately. Continue corticosteroids and continue antibiotics for aspiration pneumonia. 01/31: Mental status is better. No evidence of Sepsis. Afebrile. Leukocytosis will persist while on steroids. Plan to DC the patient on Dexamethasone. Augmentin for aspiration pneumonia.
[2020-02-01 11:52] VITALS: TEMP 98.8
[2020-02-01] MEDS ORDERED: Potassium Chloride 20 MEQ in Premix Bag 1 BAG IVPB SCH (12:00)
--- NOTE | 2020-02-01 13:35 | EKG ---
Test Reason : Blood Pressure : / mmHG Vent. Rate : 066 BPM Atrial Rate : 066 BPM P-R Int : 186 ms QRS Dur : 110 ms QT Int : 380 ms P-R-T Axes : 081 066 100 degrees QTc Int : 398 ms Normal sinus rhythm Abnormal ECG Confirmed by JERAMY THOMAS, ROMEO ([id number]), television news video editor DANIA MEAD ([id number]) on 02/01/2020 1:35:07 PM Referred By: Confirmed By:ROMEO DESHPANDE MD
[2020-02-01 14:28] VITALS: BP 141/75
--- NOTE | 2020-02-03 08:53 | DIS ---
DATE OF ADMISSION: 01/25/2020 DATE OF DISCHARGE: 02/01/2020 DISCHARGE DIAGNOSES: 1. Intracerebral hemorrhage. 2. Hypertensive emergency. 3. Atrial fibrillation. 4. Cardiomyopathy. 5. Aspiration pneumonia. DISCHARGE MEDICATIONS: 1. Carvedilol 50 mg orally twice daily. 2. Furosemide 40 mg orally daily. 3. Primidone 100 mg orally nightly. 4. Primidone 50 mg orally daily. 5. Tamsulosin 0.4 mg orally daily. 6. Venlafaxine 150 mg orally daily. 7. Tylenol 500 mg orally q.6 hours as needed for pain. 8. Xanax 0.25 mg orally nightly. 9. Amlodipine 10 mg orally daily. 10. Augmentin 875/125 mg orally twice daily for 5 days. 11. Aspirin 81 mg orally daily. 12. Calcium carbonate 1000 mg orally q.4 hours as needed for heartburn. 13. Dexamethasone 8 mg orally daily for three days, then 6 mg orally daily for three days, then 4 mg orally daily for three days, then 2 mg orally daily for three days. 14. Docusate 100 mg orally daily as needed for constipation. 15. Finasteride 5 mg orally daily. 16. Flonase nasal spray one in each naris daily as needed for allergies. 17. Mucinex 600 mg orally twice daily as needed for congestion. 18. Hydralazine 50 orally three times a day. 19. Probiotic acidophilus one tablet with meals and at bedtime for a total of 20 tablets. 20. Lisinopril 40 mg orally nightly. 21. Melatonin 5 mg orally nightly. 22. Simvastatin 40 mg orally nightly. HISTORY OF PRESENT ILLNESS AND HOSPITAL COURSE: The patient is an 79-year-old male with past medical history of hypertension, hyperlipidemia, atrial fibrillation, and cardiomyopathy, who was previously on Xarelto, but discontinued one month prior to admission. The patient was transferred to our hospital after being diagnosed with left occipital intraparenchymal hemorrhage at an outside ER. He apparently woke up on the day of presentation with headache and vision changes, which prompted his family to bring him to the ER, where CT scan showed the left occipital intraparenchymal hemorrhage with moderate amount of surrounding vasogenic edema. The patient was found to have profound hypertension in the ER and was placed on a nicardipine drip and subsequently admitted to the ICU. He has been followed by Neurosurgery Team and no surgical intervention was recommended. The patient's oral antihypertensive regimen was re-introduced, and nicardipine drip was weaned off gradually. The patient's mental status started to deteriorate and subsequent CT scans of the head did not show any expansion of the hematoma, but did show vasogenic edema and some midline shift. The patient was subsequently placed on corticosteroids, which led to drastic improvement in his symptoms within 24 hours of initiation. A modified barium swallow evaluation was done and dietary recommendations of pureed diet with nectar thick liquids was recommended. Medication should be crushed. 36 hours prior to discharge, the patient's chest x-ray revealed findings suggestive of possible aspiration. He was started on IV Unasyn, which led to improvement in his respiratory status. We will continue outpatient management with Augmentin as above. Job ID: [id number]
== END 2020-02-01 15:57 | disposition swing bed (61) | DRG 64 ==
LOC: ERS 10:31 → CCU 13:36 → 2SE 01-27 18:57
PROVIDERS: ADMIT Neurological Surgery; ATTEND Neurological Surgery
PROC: 30233R0 Transfusion of Autologous Platelets into Peripheral Vein, Percutaneous Approach (ICD-10-PCS; principal; 2020-01-25)
DX: I61.8 Other nontraumatic intracerebral hemorrhage (principal); J69.0 Pneumonitis due to inhalation of food and vomit; G93.6 Cerebral edema; I42.9 Cardiomyopathy, unspecified; I16.1 Hypertensive emergency; G81.91 Hemiplegia, unspecified affecting right dominant side; I48.91 Unspecified atrial fibrillation; Z95.0 Presence of cardiac pacemaker; Z66 Do not resuscitate; Z98.52 Vasectomy status; R40.2362 Coma scale, best motor response, obeys commands, at arrival to emergency department; R40.2142 Coma scale, eyes open, spontaneous, at arrival to emergency department; R40.2242 Coma scale, best verbal response, confused conversation, at arrival to emergency department; R29.705 NIHSS score 5; Z88.8 Allergy status to other drugs, medicaments and biological substances; Z87.891 Personal history of nicotine dependence; E78.5 Hyperlipidemia, unspecified; D72.819 Decreased white blood cell count, unspecified; Z79.01 Long term (current) use of anticoagulants; G62.9 Polyneuropathy, unspecified
CPT/HCPCS: 36415; 36430; 51701; 70450; 70496; 70498; 71045; 74230; 80048; 80051; 81003; 82550; 82805; 83690; 83735; 85007; 85027; 86850; 86900; 86901; 87040; 87086; 93005; 96365; 96366; 96375; J0295; J0360; J0696; J2270; J2405; J2930; J3475; J3480; J3490; J7050; P9035; Q9967; S0028

== ENCOUNTER 2022-05-10 13:30 | Inpatient (IN) | payer MEDICARE, OTHER ==
[2022-05-10 14:28] LABS: #Eosinphils 0.3 thou/uL (0.0-0.7); #Lymphocytes 2.7 thou/uL (1.20-3.40); #Neutrophils 6.6 thou/uL (1.40-6.50); %Basophils 0.1 % (0.0-1.0); %Eosinophils 2.4 % (0.0-10.0); %Lymphocytes 25.5 % (21.0-51.0); %Monocytes 9.2 % (0.0-10.0); %Neutrophils 62.7 % (42.0-75.0); Hemoglobin 14.9 g/dL (14.0-18.0); Mean Corpuscular HGB CONC 32.8 g/dL (32.0-36.0); Mean Corpuscular Hemoglobin 33.3 pg (27.0-31.0); Mean Platelet Volume 8.3 fL (7.4-10.4); Platelet Count 239 thou/uL (130-400); RBC Distribution Width 12.3 % (11.5-14.5); Red Blood Cell (RBC) Count 4.47 mill/uL (4.70-6.10); White Blood Cell (WBC) Count 10.5 thou/uL (4.8-10.8)
[2022-05-10 14:55] LABS: ALT (SGPT) 14 U/L (8-55); AST (SGOT) 18 U/L (5-34); Albumin 3.9 g/dL (3.4-4.8); Alkaline Phosphatase 42 U/L (40-110); Anion Gap 13 mmol/L (10-20); BUN (Urea Nitrogen) 25 mg/dL (8.4-25.7); Bilirubin, Total 0.6 mg/dL (0.2-1.2); Calc. Creatinine Clearance 0 mL/min (70-130); Calcium 9.1 mg/dL (7.8-10.44); Carbon Dioxide 28 mmol/L (23-31); Chloride 102 mmol/L (98-107); Estimated GFR 68; Globulin 2.4 g/dL (2.4-3.5); Glucose 98 mg/dL (83-110); Potassium 3.6 mmol/L (3.5-5.1); Protein, Total 6.3 g/dL (5.8-8.1); Sodium 139 mmol/L (136-145)
[2022-05-10] MEDS ORDERED: Acetaminophen 325 MG TAB PO PRN (18:05)
[2022-05-10] MEDS ORDERED: hydrALAZINE 20 MG/ML VIAL SLOW IVP PRN (18:06)
[2022-05-10 18:09] LABS: Troponin I 0.011 ng/mL (< 0.028)
[2022-05-10] MEDS ORDERED: Aspirin 81 mg Enteric Coated Tablet PO SCH (18:30)
[2022-05-10] MEDS: Propranolol 10 MG TAB PO SCH (20:19)
[2022-05-10 20:30] VITALS: BMI 25.7
[2022-05-10 21:15] LABS: Troponin I 0.012 ng/mL (< 0.028)
[2022-05-11 04:07] LABS: #Eosinphils 0.2 thou/uL (0.0-0.7); #Lymphocytes 3.4 thou/uL (1.20-3.40); #Monocytes 1.2 thou/uL (0.11-0.59); %Basophils 0.1 % (0.0-1.0); %Eosinophils 2.2 % (0.0-10.0); %Lymphocytes 31.3 % (21.0-51.0); %Neutrophils 55.4 % (42.0-75.0); Hemoglobin 14.6 g/dL (14.0-18.0); Mean Corpuscular HGB CONC 32.4 g/dL (32.0-36.0); Mean Corpuscular Hemoglobin 33.1 pg (27.0-31.0); Mean Platelet Volume 8.5 fL (7.4-10.4); Platelet Count 227 thou/uL (130-400); RBC Distribution Width 12.3 % (11.5-14.5); White Blood Cell (WBC) Count 10.8 thou/uL (4.8-10.8)
[2022-05-11 04:30] LABS: Anion Gap 11 mmol/L (10-20); BUN (Urea Nitrogen) 21 mg/dL (8.4-25.7); Calc. Creatinine Clearance 64 mL/min (70-130); Calcium 8.8 mg/dL (7.8-10.44); Carbon Dioxide 31 mmol/L (23-31); Chloride 103 mmol/L (98-107); Estimated GFR 76; Glucose 90 mg/dL (83-110); Magnesium 1.9 mg/dL (1.6-2.6); Potassium 3.1 mmol/L (3.5-5.1); Sodium 142 mmol/L (136-145)
[2022-05-11] MEDS ORDERED: Propranolol 10 MG TAB PO SCH (09:00)
[2022-05-11] MEDS: Gabapentin 100 MG CAP PO SCH ×2 (09:48→20:23)
[2022-05-11] MEDS: Aspirin 81 mg Enteric Coated Tablet PO SCH (09:49)
[2022-05-11] MEDS: Tamsulosin HCl 0.4 MG CAP PO SCH (09:49)
[2022-05-11] MEDS: Venlafaxine HCl XR 150 MG CAP PO SCH (09:49)
[2022-05-11] MEDS: Propranolol 10 MG TAB PO SCH ×2 (09:49→20:22)
[2022-05-11] MEDS: Divalproex Sodium 125 mg Sprinkle Capsule PO SCH ×2 (09:49→20:23)
[2022-05-11] MEDS: Finasteride 5 MG TAB PO SCH (09:49)
[2022-05-11] MEDS: Amiodarone 200 MG TAB PO SCH (09:49)
[2022-05-11] MEDS: Polyethylene Glycol 3350 17 GM Packet PO SCH (09:50)
[2022-05-11] MEDS: Potassium Chloride 20 MEQ TAB PO SCH ×2 (17:28→20:22)
[2022-05-11] MEDS ORDERED: Melatonin 3 MG TAB PO SCH (21:00)
[2022-05-12 04:51] LABS: #Eosinphils 0.1 thou/uL (0.0-0.7); #Monocytes 1.1 thou/uL (0.11-0.59); %Basophils 0.4 % (0.0-1.0); %Eosinophils 1.3 % (0.0-10.0); %Lymphocytes 29.2 % (21.0-51.0); %Monocytes 10.4 % (0.0-10.0); %Neutrophils 58.7 % (42.0-75.0); Hemoglobin 14.4 g/dL (14.0-18.0); Mean Corpuscular Hemoglobin 32.5 pg (27.0-31.0); Mean Platelet Volume 8.7 fL (7.4-10.4); Platelet Count 214 thou/uL (130-400); RBC Distribution Width 12.4 % (11.5-14.5); Red Blood Cell (RBC) Count 4.43 mill/uL (4.70-6.10); White Blood Cell (WBC) Count 10.2 thou/uL (4.8-10.8)
[2022-05-12 05:09] LABS: Anion Gap 10 mmol/L (10-20); BUN (Urea Nitrogen) 26 mg/dL (8.4-25.7); Calc. Creatinine Clearance 64 mL/min (70-130); Calcium 9.2 mg/dL (7.8-10.44); Carbon Dioxide 29 mmol/L (23-31); Chloride 105 mmol/L (98-107); Estimated GFR 76; Glucose 94 mg/dL (83-110); Potassium 3.9 mmol/L (3.5-5.1); Sodium 140 mmol/L (136-145)
[2022-05-12] MEDS: Divalproex Sodium 125 mg Sprinkle Capsule PO SCH (09:50)
[2022-05-12] MEDS: Tamsulosin HCl 0.4 MG CAP PO SCH (09:50)
[2022-05-12] MEDS: Finasteride 5 MG TAB PO SCH (09:50)
[2022-05-12] MEDS: Amiodarone 200 MG TAB PO SCH (09:50)
[2022-05-12] MEDS: Gabapentin 100 MG CAP PO SCH (09:50)
[2022-05-12] MEDS: Aspirin 81 mg Enteric Coated Tablet PO SCH (09:50)
[2022-05-12] MEDS: Polyethylene Glycol 3350 17 GM Packet PO SCH (09:51)
[2022-05-12] MEDS: Propranolol 10 MG TAB PO SCH (09:51)
[2022-05-12] MEDS: Venlafaxine HCl XR 150 MG CAP PO SCH (09:52)
[2022-05-12 17:39] VITALS: BP 172/78; TEMP 98.7
== END 2022-05-12 19:18 | DRG 312 ==
LOC: ERS 13:30 → 2NO 16:21 → INTOOBSV 16:21 → OBSVTOIN 05-11 16:07
PROVIDERS: ADMIT Family Medicine; ATTEND Internal Medicine
DX: R55 Syncope and collapse (principal); I42.9 Cardiomyopathy, unspecified; E78.5 Hyperlipidemia, unspecified; I10 Essential (primary) hypertension; F32.A Depression, unspecified; I48.0 Paroxysmal atrial fibrillation; R53.1 Weakness; G25.0 Essential tremor; G47.00 Insomnia, unspecified; G62.9 Polyneuropathy, unspecified; N40.0 Benign prostatic hyperplasia without lower urinary tract symptoms; M19.90 Unspecified osteoarthritis, unspecified site; F41.9 Anxiety disorder, unspecified; R29.6 Repeated falls; E87.6 Hypokalemia; Z20.822 Contact with and (suspected) exposure to COVID-19; I69.820 Aphasia following other cerebrovascular disease; Z88.8 Allergy status to other drugs, medicaments and biological substances; Z95.810 Presence of automatic (implantable) cardiac defibrillator; Z79.899 Other long term (current) drug therapy; Z79.82 Long term (current) use of aspirin; Z98.890 Other specified postprocedural states; Z87.891 Personal history of nicotine dependence; Z98.52 Vasectomy status
CPT/HCPCS: 36415; 70450; 72125; 80048; 80053; 83735; 84484; 85025; 93005; 93306; 93880; G0378; J0360; U0003; U0005

== ENCOUNTER 2022-05-29 11:41 | Inpatient (IN) | payer MEDICARE, OTHER ==
[2022-05-29] MEDS ORDERED: niCARdipine 25 MG/10 ML VIAL ONE (11:59)
[2022-05-29 12:08] LABS: #Eosinphils 0.1 thou/uL (0.0-0.7); #Lymphocytes 2.3 thou/uL (1.20-3.40); #Monocytes 0.9 thou/uL (0.11-0.59); #Neutrophils 10.3 thou/uL (1.40-6.50); %Basophils 0.1 % (0.0-1.0); %Eosinophils 0.7 % (0.0-10.0); %Lymphocytes 17.2 % (21.0-51.0); %Monocytes 6.3 % (0.0-10.0); %Neutrophils 75.7 % (42.0-75.0); Hemoglobin 14.5 g/dL (14.0-18.0); Mean Corpuscular HGB CONC 32.6 g/dL (32.0-36.0); Mean Corpuscular Hemoglobin 33.4 pg (27.0-31.0); Mean Platelet Volume 8.3 fL (7.4-10.4); Platelet Count 238 thou/uL (130-400); RBC Distribution Width 12.8 % (11.5-14.5); Red Blood Cell (RBC) Count 4.32 mill/uL (4.70-6.10); White Blood Cell (WBC) Count 13.6 thou/uL (4.8-10.8)
[2022-05-29 12:22] LABS: PTT 25.5 sec (22.9-36.1); Prothrombin Time 13.6 sec (12.0-14.7)
[2022-05-29 12:30] LABS: ALT (SGPT) 17 U/L (8-55); AST (SGOT) 21 U/L (5-34); Albumin 3.9 g/dL (3.4-4.8); Alkaline Phosphatase 52 U/L (40-110); Anion Gap 17 mmol/L (10-20); BUN (Urea Nitrogen) 16 mg/dL (8.4-25.7); Bilirubin, Total 0.7 mg/dL (0.2-1.2); Calc. Creatinine Clearance 0 mL/min (70-130); Calcium 9.2 mg/dL (7.8-10.44); Carbon Dioxide 25 mmol/L (23-31); Chloride 104 mmol/L (98-107); Estimated GFR 73; Globulin 2.2 g/dL (2.4-3.5); Glucose 129 mg/dL (83-110); Potassium 3.6 mmol/L (3.5-5.1); Protein, Total 6.1 g/dL (5.8-8.1); Sodium 142 mmol/L (136-145)
[2022-05-29 12:49] LABS: Bilirubin Negative (Negative); Blood, Urine Negative (Negative); Glucose, Urine (Dipstick) Normal (Negative); Ketone, Urine 10 mg/dL (Negative); Leukocyte Negative Leu/uL (Negative); Nitrite Negative (Negative); Protein, Urine (Dipstick) Negative (Neg-Trace); Specific Gravity, Urine 1.013 (1.002-1.036); Urobilinogen Normal mg/dL (Less than 2)
[2022-05-29] MEDS ORDERED: levETIRAcetam 500 MG/5 ML VIAL ONE (12:54)
[2022-05-29 12:55] LABS: Clarity Hazy (Clear)
[2022-05-29] MEDS ORDERED: Morphine 4 MG/ML VIAL ONE (13:05)
[2022-05-29] MEDS ORDERED: Acetaminophen 650 MG Suppository PR PRN (13:55)
[2022-05-29] MEDS ORDERED: niCARdipine 25 MG in Sodium Chloride 0.9% 250 ML 250 ML IVPB SCH (14:00)
[2022-05-29 15:35] LABS: SARS-CoV-2 NAA Rapid Test Not Detected (NotDetected)
[2022-05-29] MEDS ORDERED: HYDROcodone/Acetaminophen 5/325 mg Tablet ONE (15:36)
[2022-05-29] MEDS: Morphine 2 MG/ML VIAL SLOW IVP PRN (17:19)
[2022-05-29] MEDS: Sodium Chloride 0.9% 1,000 ML IV SCH (17:20)
[2022-05-29] MEDS ORDERED: levETIRAcetam in NS 1,000 MG in Premix Bag 1 BAG IVPB SCH (21:00)
[2022-05-29] MEDS: Gabapentin 100 MG CAP PO SCH (21:09)
[2022-05-29] MEDS: levETIRAcetam 500 MG/5 ML VIAL SLOW IVP SCH (21:11)
[2022-05-29] MEDS: Melatonin 3 MG TAB PO SCH (21:11)
[2022-05-29] MEDS: Propranolol 10 MG TAB PO SCH (21:12)
[2022-05-29] MEDS: HYDROcodone/Acetaminophen 5/325 mg Tablet PO PRN (21:12)
[2022-05-29] MEDS: niCARdipine 25 MG in Sodium Chloride 0.9% 250 ML 250 ML IVPB SCH (23:27)
[2022-05-30] MEDS: Morphine 2 MG/ML VIAL SLOW IVP PRN ×5 (01:05→21:47)
[2022-05-30] MEDS: Ondansetron PF 4 MG/2 ML Vial IVP PRN ×2 (01:05→07:00)
[2022-05-30] MEDS: niCARdipine 25 MG in Sodium Chloride 0.9% 250 ML 250 ML IVPB SCH ×5 (03:17→21:48)
[2022-05-30 04:40] LABS: #Lymphocytes 1.8 thou/uL (1.20-3.40); #Monocytes 1.2 thou/uL (0.11-0.59); %Eosinophils 0.1 % (0.0-10.0); %Lymphocytes 11.8 % (21.0-51.0); %Neutrophils 80.2 % (42.0-75.0); Hemoglobin 14.4 g/dL (14.0-18.0); Mean Corpuscular HGB CONC 32.1 g/dL (32.0-36.0); Mean Corpuscular Hemoglobin 33.4 pg (27.0-31.0); Mean Platelet Volume 8.1 fL (7.4-10.4); Platelet Count 246 thou/uL (130-400); RBC Distribution Width 12.8 % (11.5-14.5); Red Blood Cell (RBC) Count 4.31 mill/uL (4.70-6.10); White Blood Cell (WBC) Count 14.9 thou/uL (4.8-10.8)
[2022-05-30 04:57] LABS: Anion Gap 15 mmol/L (10-20); BUN (Urea Nitrogen) 12 mg/dL (8.4-25.7); Calc. Creatinine Clearance 85 mL/min (70-130); Calcium 8.6 mg/dL (7.8-10.44); Carbon Dioxide 23 mmol/L (23-31); Chloride 103 mmol/L (98-107); Estimated GFR 89; Glucose 105 mg/dL (83-110); Potassium 3.5 mmol/L (3.5-5.1); Sodium 137 mmol/L (136-145)
[2022-05-30] MEDS: Propranolol 10 MG TAB PO SCH ×2 (08:47→20:54)
[2022-05-30] MEDS: Finasteride 5 MG TAB PO SCH (08:49)
[2022-05-30] MEDS: Gabapentin 100 MG CAP PO SCH ×2 (08:49→20:53)
[2022-05-30] MEDS: Amiodarone 200 MG TAB PO SCH (08:49)
[2022-05-30] MEDS: levETIRAcetam 500 MG/5 ML VIAL SLOW IVP SCH (08:49)
[2022-05-30] MEDS: Tamsulosin HCl 0.4 MG CAP PO SCH (08:50)
[2022-05-30] MEDS: Sodium Chloride 0.9% 1,000 ML IV SCH (13:01)
[2022-05-30] MEDS ORDERED: Iopamidol 370 76% 100 ML VIAL ONE (14:34)
[2022-05-30] MEDS ORDERED: NIFEdipine XL 30 MG TAB PO SCH (14:45)
[2022-05-30] MEDS ORDERED: Amlodipine 10 MG TAB PO SCH (15:45)
[2022-05-30] MEDS: Acetaminophen 325 MG TAB PO PRN (18:49)
[2022-05-30] MEDS: Cyanocobalamin (Vitamin B-12) 1,000 MCG TAB PO SCH (20:53)
[2022-05-30] MEDS: Melatonin 3 MG TAB PO SCH (20:53)
[2022-05-30] MEDS: Lisinopril 10 MG TAB PO SCH (20:54)
[2022-05-30] MEDS: Atorvastatin Calcium 20 MG TAB PO SCH (20:54)
[2022-05-30] MEDS: Cholecalciferol 1,000 UNITS (25 MCG) TAB PO SCH (20:54)
[2022-05-30] MEDS: Folic Acid 1 MG TAB PO SCH (20:54)
[2022-05-30] MEDS: Polyvinyl Alcohol 1.4%/Povidone 0.6% Opth Drops EA EYE SCH (21:23)
[2022-05-31] MEDS: niCARdipine 25 MG in Sodium Chloride 0.9% 250 ML 250 ML IVPB SCH (00:50)
[2022-05-31] MEDS: Acetaminophen/Codeine 30-300mg Tablet PO PRN ×3 (02:03→17:08)
[2022-05-31] MEDS: Sodium Chloride 0.9% 1,000 ML IV SCH (05:34)
[2022-05-31] MEDS: Cholecalciferol 1,000 UNITS (25 MCG) TAB PO SCH ×2 (08:17→21:00)
[2022-05-31] MEDS: Tamsulosin HCl 0.4 MG CAP PO SCH (08:17)
[2022-05-31] MEDS: Propranolol 10 MG TAB PO SCH ×2 (08:17→21:01)
[2022-05-31] MEDS: Finasteride 5 MG TAB PO SCH (08:17)
[2022-05-31] MEDS: Zinc Sulfate 220 MG CAP PO SCH (08:17)
[2022-05-31] MEDS: Lisinopril 10 MG TAB PO SCH ×2 (08:17→21:00)
[2022-05-31] MEDS: Amiodarone 200 MG TAB PO SCH (08:18)
[2022-05-31] MEDS: Multivitamin W/ Minerals 1 TAB PO SCH (08:18)
[2022-05-31] MEDS: Gabapentin 100 MG CAP PO SCH ×2 (08:18→21:01)
[2022-05-31] MEDS: Polyethylene Glycol 3350 17 GM Packet PO SCH (08:51)
[2022-05-31] MEDS ORDERED: NIFEdipine XL 30 MG TAB PO SCH (09:00)
[2022-05-31] MEDS ORDERED: Amlodipine 10 MG TAB PO SCH (09:00)
[2022-05-31] MEDS: Polyvinyl Alcohol 1.4%/Povidone 0.6% Opth Drops EA EYE SCH ×2 (09:21→21:01)
[2022-05-31] MEDS ORDERED: Electrolyte Replacement Protocol 1 EACH FS SCH (18:45)
[2022-05-31] MEDS: HYDROcodone/Acetaminophen 5/325 mg Tablet PO PRN (18:48)
[2022-05-31] MEDS ORDERED: Potassium Chloride 20 MEQ TAB PO SCH (21:00)
[2022-05-31] MEDS: Cyanocobalamin (Vitamin B-12) 1,000 MCG TAB PO SCH (21:00)
[2022-05-31] MEDS: Folic Acid 1 MG TAB PO SCH (21:00)
[2022-05-31] MEDS: Atorvastatin Calcium 20 MG TAB PO SCH (21:00)
[2022-05-31] MEDS: Melatonin 3 MG TAB PO SCH (21:01)
[2022-06-01] MEDS: hydrALAZINE 20 MG/ML VIAL SLOW IVP PRN ×2 (04:20→06:13)
[2022-06-01] MEDS: HYDROcodone/Acetaminophen 5/325 mg Tablet PO PRN (04:20)
[2022-06-01] MEDS: Sodium Chloride 0.9% 1,000 ML IV SCH (04:20)
[2022-06-01] MEDS ORDERED: Sterile Water 10 ML VIAL FS PRN (06:15)
[2022-06-01] MEDS ORDERED: OLANZapine 10 MG VIAL IM SCH (06:15)
[2022-06-01 06:47] LABS: #Lymphocytes 2.7 thou/uL (1.20-3.40); #Monocytes 1.9 thou/uL (0.11-0.59); #Neutrophils 10.3 thou/uL (1.40-6.50); %Basophils 0.2 % (0.0-1.0); %Eosinophils 0.2 % (0.0-10.0); %Lymphocytes 18.2 % (21.0-51.0); %Neutrophils 68.5 % (42.0-75.0); Hemoglobin 13.7 g/dL (14.0-18.0); Mean Corpuscular Hemoglobin 32.9 pg (27.0-31.0); Mean Corpuscular Volume 99.7 fL (78.0-98.0); Mean Platelet Volume 8.3 fL (7.4-10.4); Platelet Count 243 thou/uL (130-400); RBC Distribution Width 12.3 % (11.5-14.5); Red Blood Cell (RBC) Count 4.18 mill/uL (4.70-6.10)
[2022-06-01 06:52] LABS: Anion Gap 16 mmol/L (10-20); BUN (Urea Nitrogen) 18 mg/dL (8.4-25.7); Calc. Creatinine Clearance 84 mL/min (70-130); Calcium 8.6 mg/dL (7.8-10.44); Carbon Dioxide 23 mmol/L (23-31); Chloride 100 mmol/L (98-107); Estimated GFR 88; Glucose 93 mg/dL (83-110); Magnesium 1.6 mg/dL (1.6-2.6); Potassium 3.1 mmol/L (3.5-5.1); Sodium 136 mmol/L (136-145)
[2022-06-01 06:53] LABS: Phosphorus 1.7 mg/dL (2.3-4.7)
[2022-06-01] MEDS ORDERED: Magnesium 2 GM/50 ML(in water) 2 GM in Premix Bag 1 BAG IVPB SCH (08:00)
[2022-06-01] MEDS ORDERED: Potassium Chloride 20 MEQ TAB PO SCH (08:00)
[2022-06-01] MEDS: Amiodarone 200 MG TAB PO SCH (08:14)
[2022-06-01] MEDS: Polyethylene Glycol 3350 17 GM Packet PO SCH (08:14)
[2022-06-01] MEDS: Zinc Sulfate 220 MG CAP PO SCH (08:14)
[2022-06-01] MEDS: PHOS-NAK 1 PKT PACK PO SCH ×2 (08:14→14:31)
[2022-06-01] MEDS: Tamsulosin HCl 0.4 MG CAP PO SCH (08:15)
[2022-06-01] MEDS: Gabapentin 100 MG CAP PO SCH ×2 (08:15→20:24)
[2022-06-01] MEDS: Lisinopril 10 MG TAB PO SCH ×2 (08:15→20:26)
[2022-06-01] MEDS: Cholecalciferol 1,000 UNITS (25 MCG) TAB PO SCH ×2 (08:16→20:25)
[2022-06-01] MEDS: Propranolol 10 MG TAB PO SCH ×2 (08:16→20:24)
[2022-06-01] MEDS: Multivitamin W/ Minerals 1 TAB PO SCH (08:16)
[2022-06-01] MEDS: Finasteride 5 MG TAB PO SCH (08:16)
[2022-06-01] MEDS: Polyvinyl Alcohol 1.4%/Povidone 0.6% Opth Drops EA EYE SCH ×2 (09:55→21:14)
[2022-06-01 10:46] VITALS: BMI 27.7
[2022-06-01] MEDS: Acetaminophen 325 MG TAB PO PRN (20:22)
[2022-06-01] MEDS: Melatonin 3 MG TAB PO SCH (20:23)
[2022-06-01] MEDS: Cyanocobalamin (Vitamin B-12) 1,000 MCG TAB PO SCH (20:25)
[2022-06-01] MEDS: Atorvastatin Calcium 20 MG TAB PO SCH (20:25)
[2022-06-01] MEDS: Folic Acid 1 MG TAB PO SCH (20:25)
[2022-06-02] MEDS: Acetaminophen 325 MG TAB PO PRN (04:48)
[2022-06-02] MEDS: Sodium Chloride 0.9% 1,000 ML IV SCH (04:50)
[2022-06-02 04:54] LABS: #Basophils 0.1 thou/uL (0.0-0.2); #Eosinphils 0.1 thou/uL (0.0-0.7); #Lymphocytes 2.8 thou/uL (1.20-3.40); #Monocytes 1.6 thou/uL (0.11-0.59); %Basophils 0.5 % (0.0-1.0); %Eosinophils 0.5 % (0.0-10.0); %Lymphocytes 22.6 % (21.0-51.0); %Monocytes 12.9 % (0.0-10.0); %Neutrophils 63.6 % (42.0-75.0); Hemoglobin 14.1 g/dL (14.0-18.0); Mean Corpuscular HGB CONC 33.1 g/dL (32.0-36.0); Mean Corpuscular Hemoglobin 33.3 pg (27.0-31.0); Mean Platelet Volume 8.2 fL (7.4-10.4); Platelet Count 246 thou/uL (130-400); RBC Distribution Width 12.3 % (11.5-14.5); Red Blood Cell (RBC) Count 4.24 mill/uL (4.70-6.10); White Blood Cell (WBC) Count 12.6 thou/uL (4.8-10.8)
[2022-06-02 06:41] LABS: Albumin 3.6 g/dL (3.4-4.8); Anion Gap 11 mmol/L (10-20); BUN (Urea Nitrogen) 18 mg/dL (8.4-25.7); BUN/Creatinine Ratio 19.35; Calc. Creatinine Clearance 74 mL/min (70-130); Calcium 8.8 mg/dL (7.8-10.44); Carbon Dioxide 30 mmol/L (23-31); Chloride 100 mmol/L (98-107); Estimated GFR 82; Glucose 96 mg/dL (83-110); Magnesium 2.1 mg/dL (1.6-2.6); Phosphorus 2.6 mg/dL (2.3-4.7); Potassium 3.1 mmol/L (3.5-5.1); Sodium 138 mmol/L (136-145)
[2022-06-02] MEDS ORDERED: Potassium Phosphate 30 MMOL in Sodium Chloride 0.9% 500 ML IVPB SCH (07:45)
[2022-06-02] MEDS ORDERED: Potassium Chloride 20 MEQ TAB PO SCH (08:00)
[2022-06-02] MEDS ORDERED: NS 0.9% w/ 20 MEQ KCL 1,000 ML/1,000 ML BAG IV SCH (08:00)
[2022-06-02] MEDS ORDERED: Potassium Phosphate 30 MMOL in Sodium Chloride 0.9% 250 ML 250 ML IVPB SCH (08:15)
[2022-06-02] MEDS: Finasteride 5 MG TAB PO SCH (08:59)
[2022-06-02] MEDS: Multivitamin W/ Minerals 1 TAB PO SCH (08:59)
[2022-06-02] MEDS: Lisinopril 10 MG TAB PO SCH (08:59)
[2022-06-02] MEDS: Polyethylene Glycol 3350 17 GM Packet PO SCH (08:59)
[2022-06-02] MEDS: Amiodarone 200 MG TAB PO SCH (08:59)
[2022-06-02] MEDS: Gabapentin 100 MG CAP PO SCH (08:59)
[2022-06-02] MEDS: Zinc Sulfate 220 MG CAP PO SCH (08:59)
[2022-06-02] MEDS: Cholecalciferol 1,000 UNITS (25 MCG) TAB PO SCH (08:59)
[2022-06-02] MEDS: Tamsulosin HCl 0.4 MG CAP PO SCH (09:00)
[2022-06-02] MEDS: Polyvinyl Alcohol 1.4%/Povidone 0.6% Opth Drops EA EYE SCH (09:00)
[2022-06-02] MEDS: Propranolol 10 MG TAB PO SCH (09:00)
[2022-06-02] MEDS: hydrALAZINE 20 MG/ML VIAL SLOW IVP PRN ×2 (13:30→15:57)
[2022-06-02 15:58] VITALS: BP 167/74; TEMP 98.5
== END 2022-06-02 17:15 | DRG 64 ==
LOC: ERS 11:41 → CCU 13:31 → NEURO 05-31 17:45
PROVIDERS: ADMIT Internal Medicine; ATTEND Internal Medicine
DX: I61.1 Nontraumatic intracerebral hemorrhage in hemisphere, cortical (principal); G93.41 Metabolic encephalopathy; I42.9 Cardiomyopathy, unspecified; G81.91 Hemiplegia, unspecified affecting right dominant side; I16.1 Hypertensive emergency; I67.4 Hypertensive encephalopathy; Z66 Do not resuscitate; Z51.5 Encounter for palliative care; Z20.822 Contact with and (suspected) exposure to COVID-19; E78.5 Hyperlipidemia, unspecified; I10 Essential (primary) hypertension; G47.33 Obstructive sleep apnea (adult) (pediatric); G62.9 Polyneuropathy, unspecified; K21.9 Gastro-esophageal reflux disease without esophagitis; M19.90 Unspecified osteoarthritis, unspecified site; N32.81 Overactive bladder; N40.0 Benign prostatic hyperplasia without lower urinary tract symptoms; R29.708 NIHSS score 8; F32.A Depression, unspecified; F41.9 Anxiety disorder, unspecified; G25.0 Essential tremor; H54.7 Unspecified visual loss; G93.89 Other specified disorders of brain; I62.00 Nontraumatic subdural hemorrhage, unspecified; Z98.52 Vasectomy status; Z87.891 Personal history of nicotine dependence; Z88.8 Allergy status to other drugs, medicaments and biological substances; Z79.899 Other long term (current) drug therapy; Z79.82 Long term (current) use of aspirin
CPT/HCPCS: 36415; 70450; 70496; 71045; 80048; 80053; 80069; 81003; 83735; 84100; 84146; 84484; 85025; 93005; 94760; 95712; 95819; 95957; 96365; 96375; J0360; J1953; J2270; J2358; J2405; J3475; J7030; J7050; Q9967; U0002; U0003; U0005

== ENCOUNTER 2022-06-24 07:48 | Emergency (ER) | payer MEDICARE, OTHER ==
[2022-06-24 08:40] LABS: #Eosinphils 0.1 thou/uL (0.0-0.7); #Lymphocytes 2.2 thou/uL (1.20-3.40); #Monocytes 0.6 thou/uL (0.11-0.59); #Neutrophils 8.5 thou/uL (1.40-6.50); %Basophils 0.3 % (0.0-1.0); %Eosinophils 0.9 % (0.0-10.0); %Lymphocytes 19.1 % (21.0-51.0); %Monocytes 5.5 % (0.0-10.0); %Neutrophils 74.2 % (42.0-75.0); Hemoglobin 15.9 g/dL (14.0-18.0); Mean Corpuscular HGB CONC 32.8 g/dL (32.0-36.0); Mean Corpuscular Hemoglobin 32.6 pg (27.0-31.0); Mean Corpuscular Volume 99.4 fL (78.0-98.0); Mean Platelet Volume 8.6 fL (7.4-10.4); Platelet Count 244 thou/uL (130-400); RBC Distribution Width 12.4 % (11.5-14.5); Red Blood Cell (RBC) Count 4.86 mill/uL (4.70-6.10); White Blood Cell (WBC) Count 11.5 thou/uL (4.8-10.8)
[2022-06-24 09:21] LABS: ALT (SGPT) 65 U/L (8-55); AST (SGOT) 35 U/L (5-34); Albumin 3.9 g/dL (3.4-4.8); Alkaline Phosphatase 105 U/L (40-110); Anion Gap 16 mmol/L (10-20); BUN (Urea Nitrogen) 15 mg/dL (8.4-25.7); Bilirubin, Total 0.6 mg/dL (0.2-1.2); Calc. Creatinine Clearance 0 mL/min (70-130); Calcium 9.1 mg/dL (7.8-10.44); Carbon Dioxide 25 mmol/L (23-31); Chloride 102 mmol/L (98-107); Estimated GFR 85; Globulin 3.2 g/dL (2.4-3.5); Glucose 107 mg/dL (83-110); Potassium 3.6 mmol/L (3.5-5.1); Protein, Total 7.1 g/dL (5.8-8.1); Sodium 139 mmol/L (136-145)
== END 2022-06-24 10:31 | disposition home or self-care (01) ==
LOC: ERS 07:48
DX: S09.90XA Unspecified injury of head, initial encounter (principal); S00.01XA Abrasion of scalp, initial encounter; I48.91 Unspecified atrial fibrillation; E78.5 Hyperlipidemia, unspecified; I10 Essential (primary) hypertension; K21.9 Gastro-esophageal reflux disease without esophagitis; N40.0 Benign prostatic hyperplasia without lower urinary tract symptoms; Z87.891 Personal history of nicotine dependence; Z86.73 Personal history of transient ischemic attack (TIA), and cerebral infarction without residual deficits; W19.XXXA Unspecified fall, initial encounter; Z79.899 Other long term (current) drug therapy
CPT/HCPCS: 36415; 70450; 72125; 80053; 85025; 93005